=== PATIENT | male | born 1940 | race Caucasian/White ===

== ENCOUNTER 2018-08-30 17:45 | Inpatient (IN) | payer OTHER, BC ==
[2018-08-30 19:02] LABS: PLATELET COUNT 189 10^3/uL (150-400)
[2018-08-30] MEDS ORDERED: BENZONATATE 100 MG CAP PO ONE (22:29)
--- NOTE | 2018-08-30 22:34 | EDPHY ---
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 History was obtained from both the patient as well as his family members. Patient has been in [place] since June and was admitted [facility] the [facility] and diagnosed with an unspecified psychosis. Patient is currently taking Depakote. The son believes he may have bipolar disorder. Patient returned from [place] 2 weeks ago. 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 Patient denies any suicidal ideation, homicidal ideation, or hallucinations. He denies any medical complaints. No history of recent head injury. Son reports patient had an MRI obtained when he was in [place]. No fever, chills, chest pain, shortness of breath, palpitations, vomiting, diarrhea, urinary complaints, headache, lightheadedness. REVIEW OF SYSTEMS: A comprehensive 10 system review of systems was reviewed and is otherwise negative aside from elements mentioned in the history of present illness and medical decision making. PAST MEDICAL HISTORY: Denies past medical history. No family history of psychiatric illness. SOCIAL HISTORY: Nonsmoker, no alcohol, no illicit drug use. VITAL SIGNS Reviewed by me. GENERAL: Well-developed, well-nourished, resting comfortably in no respiratory distress. HEENT: Atraumatic. Eyes: No icterus, no injection. Mouth: moist mucous membranes. No erythema or lesions. Neck: supple with no adenopathy. LUNGS: Clear to auscultation bilaterally, no wheezes, rhonchi or rales. CARDIAC: Regular rate and rhythm, no rubs, murmurs or gallops. ABDOMEN: Soft, nontender, nondistended, bowel sounds normal. BACK: No CVA tenderness. EXTREMITIES: No trauma. No edema. Range of motion is normal throughout. NEURO: Alert and oriented, grossly nonfocal. SKIN: Warm and dry, no rash. Extremely dry skin with multiple areas of cracks on the fingers. PSYCHIATRIC: Normal mentation, no agitation. Poor insight into his decisions. 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,gerd - Social History Smoking Status: Never smoked Constitutional: Initial Vital Signs Temperature (C) 36.8 C 08/30/18 17:49 Heart Rate 97 08/30/18 17:49 Respiratory Rate 18 08/30/18 17:49 Blood Pressure 146/88 H 08/30/18 17:49 O2 Sat (%) 97 08/30/18 17:49 O2 Delivery Mode Room Air Allergies/Adverse Reactions: Beef Containing Products [beef] Allergy (Verified 08/30/18 17:55) Home Medications: Medication Instructions Recorded Aspirin [Aspirin 81mg (*)] 81 mg PO HS 08/31/18 Cholecalciferol Vit D3 [Vitamin D3 1,000 units PO HS 08/31/18 (*)] Divalproex ER [Depakote ER 500 MG 500 mg PO HS 08/31/18 (*)] Memantine HCl [Namenda] 10 mg PO DAILY 08/31/18 Metoprolol Succinate Xr [Toprol Xl 200 mg PO DAILY 08/31/18 100 mg (*)] [place]-3 Fatty Acids [Fish Oil 1000 6 g PO BID 08/31/18 mg (*)] QUEtiapine FUMARATE [Seroquel 100 150 mg PO HS 08/31/18 mg (*)] Valsartan/Hydrochlorothiazide 1 each PO DAILY 08/31/18 [Valsartan-Hctz 320-25 mg Tab] amLODIPine BESYLATE [Norvasc 10 mg 10 mg PO DAILY 08/31/18 (*)] Medical Decision Making ED Course/Re-evaluation: 78-year-old male presenting with family. I had a chance to obtain additional history from the family alone. I believe patient is gravely disable from what I assumed may be bipolar disorder. Family is in agreement. Patient was placed on a 72 hr mental health hold by myself. Labs were obtained. These are largely unremarkable. Patient's Depakote level is 26.4. Urine tox is negative Patient was seen and evaluated by [facility]. Decision was made to admit the patient to [facility]. Accepting physician Dr. Eunice Mosley. Differential Diagnosis: Differential diagnoses for the patient's symptom complex was considered including but not limited to dementia, psychosis, schizoaffective disorder, bipolar disorder, drug or alcohol use, occult infection. Consult/Admit Bed Type: [facility] - Data Points Laboratory Results: Laboratory Results 08/30/18 18:45 08/30/18 18:45 Medications Given: Acetaminophen (Tylenol) 650 mg PO Q4HRS PRN PRN Reason: Pain, Mild Stop: 02/27/19 00:49 Last Admin: 09/04/18 00:20 Dose: 650 mg Al Hydroxide/Mg Hydroxide (Maalox Susp) 30 ml PO Q6HRS PRN PRN Reason: Dyspepsia Stop: 02/27/19 00:49 Last Admin: 09/01/18 03:10 Dose: 30 ml Amlodipine Besylate (Norvasc) 10 mg PO DAILY [facility] Stop: 03/03/19 08:59 Last Admin: 09/04/18 11:10 Dose: Not Given Aspirin (Aspirin) 81 mg PO HS [facility] Stop: 03/03/19 20:59 Last Admin: 09/04/18 20:35 Dose: 81 mg Benzonatate (Tessalon Pearles) 100 mg PO TID PRN PRN Reason: Cough, Mild Stop: 03/02/19 15:19 Last Admin: 09/05/18 16:53 Dose: 100 mg Cholecalciferol (Vitamin D) 1,000 units PO HS [facility] Stop: 03/03/19 20:59 Last Admin: 09/04/18 20:35 Dose: 1,000 units Guaifenesin/Dextromethorphan (Robitussin Dm Oral Liquid) 10 ml PO Q4HRS PRN PRN Reason: Cough, Moderate Stop: 03/03/19 19:07 Last Admin: 09/04/18 20:37 Dose: 10 ml Hydrochlorothiazide (Hydrochlorothiazide) 25 mg PO DAILY [facility] Stop: 03/03/19 08:59 Last Admin: 09/04/18 11:11 Dose: Not Given Lorazepam (Ativan) 0.5 mg PO Q6H PRN PRN Reason: ANXIETY/INSOMNIA Stop: 03/03/19 07:44 Last Admin: 09/04/18 22:59 Dose: 0.5 mg Magnesium Hydroxide (Milk Of Magnesia) 30 ml PO DAILY PRN PRN Reason: Constipation Stop: 02/27/19 00:49 Last Admin: 08/31/18 09:25 Dose: 30 ml Memantine (Namenda) 10 mg PO DAILY [facility] Stop: 03/03/19 08:59 Last Admin: 09/05/18 08:49 Dose: 10 mg Metoprolol Succinate (Toprol Xl) 200 mg PO DAILY [facility] Stop: 03/03/19 08:59 Last Admin: 09/05/18 08:49 Dose: 200 mg Olanzapine (Zyprexa Zydis) 5 mg PO BID PRN PRN Reason: Agitation, Acute Stop: 03/02/19 16:29 Last Admin: 09/04/18 00:20 Dose: 5 mg [id number]-8-[id number] Ethyl Esters (Fish Oil) 6,000 mg PO BID [facility] Stop: 02/27/19 20:59 Last Admin: 09/05/18 08:02 Dose: 6,000 mg Throat Lozenges (Cepacol Lozenge) 1 ea PO Q4H PRN PRN Reason: Sore Throat Stop: 02/28/19 19:12 Last Admin: 09/04/18 21:59 Dose: 1 ea Valsartan (Diovan) 320 mg PO DAILY [facility] Stop: 03/03/19 08:59 Last Admin: 09/04/18 11:16 Dose: Not Given Discontinued Medications Amlodipine Besylate (Norvasc) 10 mg PO DAILY [facility] Stop: 02/27/19 09:14 Last Admin: 09/03/18 08:17 Dose: 10 mg Aspirin (Aspirin) 81 mg PO DAILY [facility] Stop: 02/27/19 09:14 Last Admin: 09/03/18 08:19 Dose: 81 mg Benzonatate (Tessalon Pearles) 100 mg PO EDNOW ONE Stop: 08/30/18 22:30 Last Admin: 08/30/18 22:32 Dose: 100 mg Cholecalciferol (Vitamin D) 1,000 units PO DAILY [facility] Stop: 02/27/19 09:14 Last Admin: 09/03/18 08:19 Dose: 1,000 units Hydrochlorothiazide (Hydrochlorothiazide) 25 mg PO DAILY [facility] Stop: 02/27/19 09:29 Last Admin: 09/03/18 08:19 Dose: 25 mg Influenza Virus Vaccine Quadrival (Flulaval Quad [id number] (6mo+)) 0.5 ml IM .ONCE ONE Stop: 08/31/18 18:12 Last Admin: 08/31/18 19:16 Dose: 0.5 ml Lorazepam (Ativan) 1 - 2 mg PO Q6 PRN PRN Reason: ANXIETY/INSOMNIA Stop: 02/27/19 00:49 Last Admin: 09/03/18 08:19 Dose: 1 mg Lorazepam (Ativan) 0.5 mg PO Q6 PRN PRN Reason: ANXIETY/INSOMNIA Stop: 02/27/19 00:49 Last Admin: 09/04/18 00:19 Dose: 0.5 mg Memantine (Namenda) 10 mg PO DAILY [facility] Stop: 02/27/19 09:14 Last Admin: 09/03/18 08:18 Dose: 10 mg Metoprolol Succinate (Toprol Xl) 200 mg PO DAILY [facility] Stop: 02/27/19 09:14 Last Admin: 09/03/18 08:18 Dose: 200 mg Olanzapine (Zyprexa Zydis) 5 - 10 mg PO Q6 PRN PRN Reason: AGITATION, USUAL MAX 30MG/DAY Stop: 02/27/19 00:49 Last Admin: 09/03/18 15:27 Dose: 5 mg Bprjs-9-[id number] Ethyl Esters (Fish Oil) 1,000 mg PO DAILY [facility] Stop: 02/27/19 09:14 Last Admin: 08/31/18 09:25 Dose: 1,000 mg Hpxng-2-Uxuu Ethyl Esters (Fish Oil) 5,000 mg PO ONCE ONE Stop: 08/31/18 09:46 Last Admin: 08/31/18 11:06 Dose: 5,000 mg Pneumococcal 13-Valent Conj Vacc (Prevnar 13 Syringe) 0.5 ml IM .ONCE ONE Stop: 08/31/18 18:12 Last Admin: 08/31/18 19:14 Dose: 0.5 ml Valsartan (Diovan) 320 mg PO DAILY [facility] Stop: 02/27/19 09:29 Last Admin: 09/03/18 08:17 Dose: 320 mg Departure - Departure Disposition: [facility] IP Clinical Impression: Psychosis Qualifiers: Psychosis type: other Qualified Code(s): F28 - Other psychotic disorder not due to a substance or known physiological condition Condition: Fair
--- NOTE | 2018-08-30 23:47 | PDCONSULT ---
Sheet Metal Mechanic Note: Hospitalist H&P CC: Psychosis HPI: 78 yo M w/ hx of HTN and prostate CA presents with family w/ concerns for psychosis. The patient himself denies complaints, SI/HI, and AVH. He is alert, oriented, has intact memory and fund of knowledge on my evaluation. He does have somewhat pressured speech. He was brought in by his family due to erratic behavior. Apparently he just bought a new car and has offered an ex-girlfriend a new house. The patient is currently taking Depakote. Additionally, ED report states that he has been verbally abusive with his . Son stated that he had an MRI in [place] that did not demonstrate any clear abnormalities. The patient denies medical complaints today. PMHx: HTN, prostate CA PSHx: Cervical spine surgery PFHx: Father had TB and silicosis VS: Temp Pulse Resp BP Pulse Ox 37.0 C 89 16 135/76 H 97 08/30/18 23:16 08/30/18 23:16 08/30/18 23:16 08/30/18 23:16 08/30/18 23:16 PE: GEN: A&Ox3, NAD HEENT: MMM, Nl scalp CV: RRR, no m/r/g RESP: CTAB, no w/r/r ABD: NTND, +BS EXT: No edema, pulses 2+ SKIN: Abrasions overlying DIPs, warm NEURO: CN II-XII intact, NL strength PSYCH: mildly pressured speech, no SI/HI/AVH Labs: Laboratory Results 08/30/18 18:45 08/30/18 18:45 08/30/18 08/30/18 08/30/18 18:50 18:45 18:45 WBC 3.90 10^3/uL 10^3/uL (3.80-9.50) RBC 4.20 10^6/uL L 10^6/uL (4.40-6.38) Hgb 13.3 g/dL L g/dL (13.7-17.5) Hct 40.0 % % (40.0-51.0) MCV 95.2 fL fL (81.5-99.8) MCH 31.7 pg pg (27.9-34.1) MCHC 33.3 g/dL g/dL (32.4-36.7) RDW 13.8 % % (11.5-15.2) Plt Count 189 10^3/uL 10^3/uL (150-400) MPV 10.0 fL fL (8.7-11.7) Neut % (Auto) 61.3 % % (39.3-74.2) Lymph % (Auto) 17.2 % % (15.0-45.0) [place] % (Auto) 20.0 % H % (4.5-13.0) Eos % (Auto) 0.0 % L % (0.6-7.6) Baso % (Auto) 1.0 % % (0.3-1.7) Nucleat RBC Rel Count 0.0 % % (0.0-0.2) Absolute Neuts (auto) 2.39 10^3/uL 10^3/uL (1.70-6.50) Absolute Lymphs (auto) 0.67 10^3/uL L 10^3/uL (1.00-3.00) Absolute Monos (auto) 0.78 10^3/uL 10^3/uL (0.30-0.80) Absolute Eos (auto) 0.00 10^3/uL L 10^3/uL (0.03-0.40) Absolute Basos (auto) 0.04 10^3/uL 10^3/uL (0.02-0.10) Absolute Nucleated RBC 0.00 10^3/uL 10^3/uL (0-0.01) Immature Gran % 0.5 % % (0.0-1.1) Immature Gran # 0.02 10^3/uL 10^3/uL (0.00-0.10) Sodium 137 mEq/L mEq/L (135-145) Potassium 3.6 mEq/L mEq/L (3.5-5.2) Chloride 100 mEq/L mEq/L (97-110) Carbon Dioxide 27 mEq/l mEq/l (22-31) Anion Gap 10 mEq/L mEq/L (6-14) BUN 21 mg/dL mg/dL (7-23) Creatinine 1.2 mg/dL mg/dL (0.7-1.3) Estimated GFR 59 Glucose 107 mg/dL H mg/dL (70-100) Calcium 8.8 mg/dL mg/dL (8.5-10.4) Urine Color YELLOW Urine Appearance CLEAR Urine pH 6.0 (5.0-7.5) Ur Specific [place] 1.017 (1.002-1.030) Urine Protein NEGATIVE (NEGATIVE) Urine Ketones NEGATIVE (NEGATIVE) Urine Blood NEGATIVE (NEGATIVE) Urine Nitrate NEGATIVE (NEGATIVE) Urine Bilirubin NEGATIVE (NEGATIVE) Urine Urobilinogen NEGATIVE EU EU (0.2-1.0) Ur Leukocyte Esterase NEGATIVE (NEGATIVE) Urine RBC NONE SEEN /hpf /hpf (0-3) Urine WBC 1-3 /hpf /hpf (0-3) Ur Epithelial Cells TRACE /lpf /lpf (NONE-1+) Urine Glucose NEGATIVE (NEGATIVE) Urine Opiates Screen NEGATIVE (NEGATIVE) Urine Barbiturates NEGATIVE (NEGATIVE) Valproic Acid 26.4 mcg/mL L mcg/mL (50.0-150.0) Ur Phencyclidine Scrn NEGATIVE (NEGATIVE) Ur Amphetamine Screen NEGATIVE (NEGATIVE) U Benzodiazepines Scrn NEGATIVE (NEGATIVE) Urine Cocaine Screen NEGATIVE (NEGATIVE) U Marijuana (THC) Screen NEGATIVE (NEGATIVE) Ethyl Alcohol < 10 mg/dL mg/dL (0-10) A/P: 78 yo M w/ HTN and prostate CA presents with decompensated psychiatric disease. 1. Psychiatric disease - Possibly decompensated roland noting impulsive behavior. Noting age, frontotemporal dementia can be a consideration but son reports normal MRI in [place]. It would be useful to track down this report. - M1 hold - Inpatient behavioral health for additional evaluation 2. HTN - On valsartan, HCTZ, and metoprolol as an outpatient. - Continue home medications Diet - Regular Code - Full Ppx - LMWH Dispo - Inpatient behavioral Health
--- NOTE | 2018-08-31 00:17 | ASMTTLCEVL ---
T[facility] Evaluation - Basic Information Evaluation Start Date and 08/30/2018 07:30 PM Time Hospital Status Answers: M1 Hold 72-hr M1 Hold Start Date 08/30/2018 06:30 PM and Time Patient statement Notes: "You're pretty. I'd like to interview you. We could hang out any day except Monday because I have to go to [employer]. You're is a melissa man. Does he know that? I'd like to get my head on straight like others but not like others who are jerks. I gave myself a 100%, I deserve an A or 150%. I gave my honest answers. I would never say anything to upset you (referencing BDI/BSS). My thinks something is wrong with me. I'm not unhappy but I have down days. I want to live. live. live. I want peace and tranquility Why feel sad when I can be happy. Buy an Juan Antonio! I haven't had sex in 14 years. I love sex. It is important. I hope you don't ever go 14 years without sex. Maybe she might have a problem. Bed isn't to lay in. I'm not going to lay in the middle of the road. Cyclists think they own the road. I saw someone on a unicycle, he wasn't using his hands. I have a tortilla shell I fill it with beans, tomatoes, and cheese. My dog loves it. Every couple of bites, he gets a bite, he is well fed better than starved. Have you ever seen a starving dog. It is not like a starving child." Narrative Notes: The patient is a 78 y/o male, , retired, with a hx of manic and depressive symptoms. He is living in an home in [place], [place]. The patient arrived via EMS on an M1 hold placed by MARIA FERNANDA SIMEON after patient's manic symptoms escalated resulting in multiple police interventions and the following behavior "wandering into traffic on highway attempting to flag cars, not sleeping/not tired, spending sprees, hyper sexual, inviting strangers into the home, andselling/giving away items. The patient presents as hyper verbal, tangential, and pressured in speech. He lacks insight into dx and denies mh hx. The patient was read their rights @ 23:00. At the time of initial utox testing in the ed @ 18:50 the patients utox was negative. Per M1 hold, "Diagnosed with psychosis 3 mos ago. Not sleeping, verbally. Abusive to family, frequent police interactions, indiscriminate spending of money, wandering in traffic. Suspect bipolar with roland." The patient stated, "You're pretty. I'd like to interview you. We could hang out any day except Monday because I have to go to [employer]. You're is a melissa man. Does he know that? I'd like to get my head on straight like others but not like others who are jerks. I gave myself a 100%, I deserve an A or 150%. I gave my honest answers. I would never say anything to upset you (referencing BDI/BSS). My thinks something is wrong with me. I'm not unhappy but I have down days. I want to live. live. live. I want peace and tranquility Why feel sad when I can be happy. Buy an Juan Antonio! I haven't had sex in 14 years. I love sex. It is important. I hope you don't ever go 14 years without sex. Maybe she might have a problem. Bed isn't to lay in. I'm not going to lay in the middle of the road. Cyclists think they own the road. I saw someone on a unicycle, he wasn't using his hands. I have a tortilla shell I fill it with beans, tomatoes, and cheese. My dog loves it. Every couple of bites, he gets a bite, he is well fed better than starved. Have you ever seen a starving dog. It is not like a starving child." Diagnosis History Notes: The patient denied any previous d/o and dx hx. The patient's family members suspect that the patient has bipolar d/o which went undiagnosed/untreated. The family members recalled several past possible episodes including most recently, three years ago, in which the patient presented similarly for three months and his symptoms reportedly resolved after removing statins from his medication regimen. Prior suicide attempts Notes: The patient denied any prior suicide attempts. Prior hospitalizations Notes: The patient reported the following previous hospitalization for mh. The patient was hospitalized in July of 2018 in [place] where he lives with his for part of the year. The patient had repeat visits to the ED resulting in psychiatric admission for similar symptoms and bhx to patient's current presentation. Treatment Responses Notes: There is not sufficient information to determine the patients treatment response. History of violence Notes: The patient denied any homicidal ideation or previous hx of violence. Therapist: None Psychiatrist: None Medications (name, dosage, route, freq uency) Notes: The patient is on multiple medications; information unknown. Allergies/Reaction Notes: no known allergies Sleep Notes: The patient has not been sleeping and is not tired; he reported "more energy." The patient's family members report that he receives 1-2 hours of sleep every few days; duration unknown. Appetite Notes: The patient stated, "That was a great sandwich!" Medical/Surgical history Notes: The patient denied any significant medical/surgical hx. Substance use history (frequency, intensity, his tory, duration) Notes: There was no substance abuse reported. Family composition Notes: The patient lives with his in part of the year in [place] and the other in [place]. Their only adult son lives in [place] with his family. Need for family Answers: Yes participation in patient's care Family psychiatric/substance abuse history Notes: The patient denied any family psychiatric/substance abuse hx. Developmental history Notes: The patient denied any developmental issues or learning disabilities. The patient denied ADD or ADHD. The patient denied any TBIs, concussions, or LOC.The patient denied any physical abuse, emotional abuse, or sexual abuse. The patient endorsed having achieved normal developmental milestones. Abuse concerns Answers: None Marital status/children Notes: The patient is with one adult child. Living situation Notes: The patient lives with his in part of the year in [place] and the other in [place]. Their only adult son lives in [place] with his family. Sexual history/orientation Notes: The patient reported he is heterosexual and he has not "had sex in 14 years." Peer support/family strengths Notes: The patient endorsed having a supportive family/peer group. Education level/history Notes: The patient reported having attended high school and some college, bachelors degree, and masters degree. Work history Notes: The patient is retired. He worked for the [employer] where he met his . Notes: no known affiliation Legal Notes: The patient denied any legal issues. Yazdanism/Spiritual Notes: The patient reported none that would interfere with treatment. The patient stated, "I believe in God." Leisure Notes: The patient reported enjoying "golfing." Collateral Notes: The collateral data was obtained from current and previous [facility] ed records/staff, 27-65 M1, and family members. Patient's strengths Answers: Funny/Using Humor (Please select at least TWO strengths): Good Parent Motivated for Treatment Supportive Family Willingness TLC Evaluation - Mental Status Exam Appearance: Answers: Appropriate Clean Neat Eye Contact: Answers: Appropriate for Culture Good/Direct Mood: Answers: Elevated Affect: Answers: Appropriate Cheerful Congruent w/ Mood Happy Hyperactive Behavior: Answers: Appropriate Cooperative Erratic Talkative Speech: Answers: Relevant Logical Clear Coherent Excessive Hypersexual Hyperverbal Loose Associations Pressured Rambling Rapid Thought Process: Answers: Organized Oriented Alert Loose Associations Racing Thoughts Tangential Insight: Answers: Poor Judgement: Answers: Poor Manic Signs/Symptoms Answers: Distractibility Hypersexuality Impulsivity Irritability Pressured Speech Racing Thoughts Spending Sprees Depression Answers: Crying Spells Signs/Symptoms: Hallucinations: Answers: None Pt reported to have Answers: No suicidal/self-injuring ideation/behavior? Pt reported to be making Answers: No suicidal/self-injuring threats? Pt reported to have Answers: No aggression/assault ideation/behavior? Pt reported to be making Answers: No aggression/assault threats? Pt exhibits inability to Answers: Yes care for self/grave disability? Ideation/behavior is Answers: No chronic? Patient has a specific Answers: No plan? Pt has access to means to Answers: No execute the plan? Ideation involves Answers: No serious/lethal intent? Ideation has Answers: No delusional/hallucinatory content? History of Answers: No suicidal/self-injuring ideation, behavior, or threats? History of Answers: No aggressive/assaultive ideation, behavior, or threats? History of serious Answers: No physical harm to self/others while in treatment setting? TLC Evaluation - Suicide/Homicide Risk Suicide Risk Factors: Answers: < 20 or > 40 Years of Age Bipolar Disorder Impulsivity Homicide/violence risk Answers: None factors: Current Suicidal Answers: No Ideation? Current Suicidal Ideation Answers: No in the Past 48 Hours? Current Suicidal Ideation Answers: No in the Past Month? Current Suicidal Answers: No Ideation, Worst Ever? Suicide Internal Answers: Gianna with Stress Protective Factors: Suicide External Answers: Positive Therapeutic Protective Factors: Relationships Responsibility to Children Social Support Ranking of patient's Answers: Moderate suicidal risk: Ranking of patient's Answers: Low homicidal risk: TLC Evaluation - Wrap-up BDI Total Score: 0 BDI Question #2 Score: 0 BDI Question #9 Score: 0 BSS Total Score: 0 AXIS I Diagnosis (include DSM-V and ICD-10 codes), must also be entered in [employer], which is the source of truth. Notes: Unspecified Bipolar and Related Disorder 296.80 (F31.9) Evaluation End Date and 08/31/2018 12:15 AM Time (HH:MM): Date Signed: 08/31/2018 12:16 AM Electronically Signed By:Radha Tobias
--- NOTE | 2018-08-31 00:18 | ASMTTCLDSP ---
TLC Discharge Disposition Disposition: Answers: Admit Discharge Concerns/Recommendations: Notes: In consultation with [facility] ED physician, Marcy Blackman MD and [facility] on-call psychiatrist, Eunice Mosley MD, both concurred that pt appears to meet 27-65 criteria requiring psychiatric hospitalization as the patient appears to be an imminent risk of harm to gravely disabled due to a mental illness condition. The patient was read the Patient Rights and Responsibilities Statement (placed on chart). The patient was given the 3N prohibited belongings list while in the ED. For inpatient Eunice Mosley MD admission, the following psychiatrist agreed to accept patient for admission to Behavioral [facility] ([facility]): Type of Hold: Answers: M1/72-hour Hold Hold initiated by: Answers: ED Physician Date Signed: 08/31/2018 12:17 AM Electronically Signed By:Radha Tobias
[2018-08-31] MEDS ORDERED: MAG HYDROX/AL HYDROX/SIMETH 30 ML UDCUP PO PRN (00:50)
[2018-08-31] MEDS ORDERED: MAGNESIUM HYDROXIDE 30 ML UDCUP PO PRN (00:50)
--- NOTE | 2018-08-31 07:28 | BAPA ---
[f rep st] ADMISSION PSYCHIATRIC ASSESSMENT DATE OF SERVICE: 08/31/2018 CHIEF COMPLAINT: "My wanted me to come here. I'm glad I did, this is where I need to be, but I can't stay too long." HISTORY OF PRESENT ILLNESS: From the ED note dated 08/30/2018, the patient presented to the emergency department with his family. The patient's primary request was wanting to be able to drive again. History was obtained by both patient as well as family members in the ED. The patient has been in [place] since June and was admitted to a hospital there and diagnosed with unspecified psychosis. The patient is currently taking Depakote. The patient returned from [place] 2 weeks ago, and according to son, has had several run-ins with the police. 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 Patient's driver material handler's license was taken away due to concerns regarding his cognitive abilities while he was in [place]. The patient' s son reported in the emergency department that he believes the patient may have bipolar disorder. From the TLC evaluation dated 08/30/2018, the patient was placed on a 72-hour M1 hold with start date and time of 08/30/2018 at 6:30 p.m. The patient reported to the [facility] jack machine operator, "You're pretty, I'd like to interview you, we could hang out any day except Monday because I have to go to [facility]. Your is a melissa man, does he know that? I'd like to get my head on straight like others but not like others who are jerks. I gave myself 100%, I deserve an A or 150%. I gave my honest answers. I would never say anything too upset to you (patient referring to BDI/BSS). My thinks there's something wrong with me. I'm not happy, but I have down days. I want to live, live, live. I want peace and tranquility. Why feel when I can be happy, buy an [employer]. I haven 't had sex for 14 years. I love sex, it is important. I hope you don't ever go 14 years without sex. Maybe she might have a problem. Bed isn't to lay in. I'm not going to lay in the middle of the road, cyclists think they own the road. I saw someone on a unicycle, he wasn't using his hands. I have a tortilla shell, I fill it with beans, tomatoes, and cheese. My dog loves it. Every couple of bites he gets a bite. He is well fed better than starved. Have you ever seen a starving dog, it is not like a starving child." Patient was placed on an M1 hold by [facility] due to police reports that the patient had been wandering into traffic on highway, attempting to flag cars, not sleeping, decreased need for sleep, spending sprees, hypersexual, inviting strangers into the home, and selling and giving way items. During the TLC evaluation patient presented hyperverbal, tangential with pressured speech. M1 hold states patient diagnosed with psychosis 3 months ago, not sleeping, verbally abusive to family, frequent police interactions, indiscriminate spending of money, wandering into traffic, suspect bipolar with roland. This NEWS CAMERA OPERATOR asked patient why he is here at the hospital and patient states that question will be better asked to his and begins telling this NEWS CAMERA OPERATOR about some recent yard work and landscaping he was doing. Then patient begins to tell this NEWS CAMERA OPERATOR how people should be treated. The patient is a poor historian, is unable to answer interview questions, is tangential. The patient requests this NEWS CAMERA OPERATOR to call his later this morning. [facility] staff at [facility] Tamayo report patient has not slept since arriving to the unit, has been awake, hyperverbal, inappropriate to female staff, hypersexual. Will continue to gather history of present illness throughout the course of the patient's hospitalization and this NEWS CAMERA OPERATOR will attempt to reach out to patient's and son today to gather more collateral. The patient has given consent for this NEWS CAMERA OPERATOR to contact both his and son. PAST PSYCHIATRIC HISTORY: The patient denies any previous psychiatric diagnosis history. The patient's family members reported during the TLC evaluation they suspect the patient has bipolar disorder, which has been undiagnosed and untreated. Family members recalled several past possible episodes including most recently 3 years ago in which the patient presented similarly with 3 months and his symptoms reportedly resolved after removing statins from his medication regimen. The patient was admitted to a hospital in [place] and was diagnosed with unspecified psychosis. ED report stated that patient is currently taking Depakote, dose unknown. We will gather this information from patient's and family and also from past records from patient's hospitalization while in [place]. The patient denies history of prior suicide attempts. The patient has 1 prior hospitalization for psychiatric treatment. The patient was hospitalized in July of 2018, in [place] where he lives with his for part of the year. The patient has had repeat visits to the emergency department resulting in psychiatric admission for similar symptoms to patient's current presentation. The patient reportedly not sleeping. Reports not being tired. Patient reported "more energy." Family members reported during the TLC evaluation patient receives 1- 2 hours of sleep every few days. The duration of this is unknown. ALLERGIES: Beef containing products. CURRENT MEDICATIONS: 1. Tylenol 650 mg p.o. q.4 hours p.r.n. 2. Ativan 1-2 mg p.o. q.6 hours p.r.n. 3. Maalox syrup 30 mL p.o. q.6 hours p.r.n. 4. Milk of Magnesia 30 mL p.o. daily p.r.n. 5. Zyprexa Zydis 5-10 mg p.o. q.6 hours p.r.n. PAST MEDICAL HISTORY: Patient denies any significant medical or surgical history. Will continue to gather this information throughout the course of the patient's hospitalization. Will also gather this information from patient's family as patient is a poor historian. SOCIAL HISTORY: The patient currently lives with his part of the year in [place] and the other in [place]. The patient has one son who lives in [place] with his family. The patient reports sexual orientation as heterosexual. Patient reports no history of learning delays or difficulties. Reports no history of TBIs, concussions, or loss of consciousness. The patient denies any history of sexual, emotional, or physical abuse. The patient reports meeting all his developmental milestones. The patient reported having attended high school and some college. Received a bachelor's degree and master' s degree. The patient is retired and the patient worked for the [employer] where he met his . The patient reports no history of legal issues. The patient reports no scientologist or spiritual practice that would interfere with treatment. SUBSTANCE USE HISTORY: Currently no substance abuse reported. Will continue to gather patient's substance use history throughout the course of the patient' s hospitalization. FAMILY PSYCHIATRIC HISTORY: The patient denies any family psychiatric history or substance abuse history. Will continue to gather family psychiatric history throughout the course of the patient's hospitalization. ADMISSION LABS AND STUDIES: 1. CBC within normal limits except red blood cells were low at 4.20, hemoglobin was low at 13.3, monocytes elevated at 20.0, eosinophils low at 0.0, absolute lymphocytes low at 0.67, absolute monocytes low at 0.00. 2. BMP within normal limits except glucose was elevated at 107. 3. Hemoglobin A1c is pending. 4. Liver function within normal limits except AST was elevated at 73. 5. Lipid panel within normal limits except LDL cholesterol calculated is elevated at 111, non-HDL cholesterol elevated at 135, and HDL cholesterol low at 35. 6. TSH within normal limits at 2.270. 7. Urines within normal limits. 8. Toxicology screen negative for all the substances that were screened and negative for ethyl alcohol. 9. Valproic acid 26.4. Current dose of Depakote unknown. MENTAL STATUS EXAM: The patient is a well-nourished male, looking stated chronological age. Attire is appropriate. Dress is casual. Grooming status is appropriate. Ambulation is independent. Gait is normal and coordinated. Posture is normal and relaxed. Eye contact is appropriate and adequate. Motor activity is appropriate with purposeful, organized, coordinated movements with no involuntary movements noted. Attitude is cooperative. Patient appears distractible and does not relate well to this interviewer. Language production is spontaneous. Rate is pressured. Latency of response is shortened. Articulation is clear. Patient reports mood as "okay" with congruent affect. Patient's thought process is nonlinear and illogical with tangential thought. The patient does not report suicidal or homicidal thoughts, ideas, or plans. The patient denies auditory or visual hallucinations. Patient denies delusions. The patient does not appear to be attending to internal stimuli. The patient is oriented to person, place, and time. The patient's attention and concentration are fair. Patient's insight and judgment are poor. DIAGNOSIS: Based on the patient's history and presentation, patient's current diagnoses are: 1. Unspecified bipolar and related disorder. 2. Rule out psychosis. 3. Rule out neurocognitive disorder. FORMULATION: The patient is a 78-year-old male, , currently living with his in [place], [place], who presents to the hospital involuntarily due to being gravely disabled and is currently on an M1 hold. The patient requires continued inpatient care because of current mood instability. The patient presents with problems of mood instability including decreased need for sleep, disorganized thought process tangential that have steadily been increasing over the past several months. Patient's life has been affected by these problems including engaging in behaviors that are the potential to cause harm including walking into traffic. The onset/exacerbation of symptoms for this hospitalization have been occurring since the beginning of this year. The trigger for symptoms is unknown at this time. The patient has a past psychiatric history of unspecified psychosis, was given this diagnosis while hospitalized July of 2018 in [place]. The patient has been prescribed Depakote dose unknown at this time and indication for prescribing Depakote is unknown at this time. The patient's response to this treatment is unknown at this time. The patient is a high safety risk due to current mood instability, disorganized thought, tangential causing inability for patient to attend to ADLs and communicate his basic needs. Protective factors while hospitalized include ongoing safety checks, active involvement in treatment and support from our treatment team. The patient could benefit from inpatient hospitalization for safety, crisis stabilization, and medication evaluation. PLAN: 1. Medications: After reviewing options, risks, and benefits with the patient , patient agrees to continue current medications listed above. Will contact the patient's at patient's request to gather additional information regarding current medications. No other medication changes at this time as more time is needed to determine ongoing tolerability and efficacy. Plan is to continue to observe patient for response and side effects from medications, and ongoing monitoring and evaluation. 2. Review with patient informed consent and recommendations for psychotropic medication treatment listed below 3. Labs: no additional labs at this time 4. Therapy: continue milieu and group therapy 5. Further investigation including gathering information from patients relatives and review of past case records to inform treatment plan. 6. Safety/Wellness plan and follow-up outpatient appointments to be established prior to discharge. Next steps are for patient to meet with personal care aide to plan a safe discharge plan and establish outpatient services for ongoing treatment. 7. Confer with inpatient treatment team regarding treatment plan. 8. Address psychosocial stressors by meeting with career coach to establish discharge plan including referrals for outpatient services. 9. Legal status: M1 10. Consider discharge next week if patient is in stable condition, safe, and has a safe discharge plan. ESTIMATED LENGTH OF STAY: 7-10 days PSYCHOTROPIC MEDICATION TREATMENT INFORMED CONSENT and RECOMMENDATIONS: Review nature of condition, diagnosis, and prognosis. Review nature and purpose of psychotropic medication treatment. Review type of psychotropic medications being ordered. Review risk and benefits of psychotropic medication treatment. Review probable length of time will need to take medications. Review risk and benefits of not undergoing psychotropic medication treatment. Review alternative treatments to psychotropic medications. Review psychotropic medications contraindications, drug-drug interactions, side effects, and importance of reporting any side effects to a psychiatric provider or nurse during inpatient hospitalization, and upon discharge to patients psychiatric outpatient provider, primary care provider, or other health pet caregiver. Review importance of asking a nurse, psychiatric provider, or primary care provider any questions or problems concerning the psychotropic medications. Verify patient understands the information that has been provided, and understands, accepts, and agrees to psychotropic medications. Review patients safety plan and importance of patient to communicate to staff while hospitalized if patient is ever a danger to self/others, or unable to care for self, and upon discharge, the importance for patient to contact [facility] or [facility], or go to the nearest emergency room, if patient is ever a danger to self/others, or unable to care for self. Recommend that upon discharge patient establish medication management treatment with a psychiatric provider, establishes routine therapy appointments, and follow-up with primary care provider. Verify patient understands and agrees to these recommendations. /[id number]/MODL MTDD
--- NOTE | 2018-08-31 07:33 | ASMTBHMTP ---
Master Treatment Plan Master Treatment Plan Answers: Mood Instability without for: Psychosis Date: 08/31/2018 Diagnosis on Admission: Unspecified Bipolar and Related Disorder 296.80 (F31.9) Expected length of stay: 3-5 Reason for admission: Notes: The patient is a 78 y/o male, , retired, with a hx of manic and depressive symptoms. He is living in an home in [place], [place]. The patient arrived via EMS on an M1 hold placed by Alexandru SIMEON after patient's manic symptoms escalated resulting in multiple police interventions and the following behavior "wandering into traffic on highway attempting to flag cars, not sleeping/not tired, spending sprees, hyper sexual, inviting strangers into the home, andselling/giving away items. The patient presents as hyper verbal, tangential, and pressured in speech. Patient's stated presenting problems: Notes: "My thought I'm a little too happy. What's wrong with being happy?". Patient's goals for treatment: Notes: "To get better". Patient's strengths: Notes: "I'm good at anything I try. I can read". Identify supports outside of hospital: Notes: Discharge criteria: Notes: Ct. will demonstrate more stable mood by discharge. Initial disposition plan/considerations: Notes: Ct. will participate in unit activities, maintain good hygiene. Master Treatment Plan Required Signatures Psychiatrist signature: Answers: Psychiatrist: RN on-shift signature: Answers: RN: Patient signature: Answers: Patient: Date Signed: 08/31/2018 07:32 AM Electronically Signed By:Bhargavi Arauz
--- NOTE | 2018-08-31 07:41 | ASMTCMCOM ---
CM Note CM Note Notes: CC met with ct. to develop MTP. Ct. presented with pressured speech. He was tangental and associative. Ct. reported that he was admitted because his thought that he was "too happy". Ct. was wearing a mouth mask reporting that he has a cold. He has cuts on several of his fingers. 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 He signed a MAGALYS for his and CC will try reaching out to her to get a clearer history of ct.'s MH issues and services. Date Signed: 08/31/2018 07:39 AM Electronically Signed By:Bhargavi Arauz
[2018-08-31] MEDS ORDERED: OMEGA-3 FATTY ACIDS 1,000 MG CAP PO SCH (09:15)
[2018-08-31] MEDS ORDERED: VALSARTAN/HCTZ 80-12.5MG TAB PO SCH (09:15)
[2018-08-31] MEDS: VALSARTAN 160 MG TAB PO SCH (09:23)
[2018-08-31] MEDS: HYDROCHLOROTHIAZIDE 25 MG TAB PO SCH (09:24)
[2018-08-31] MEDS: amLODIPine BESYLATE 5 MG TAB PO SCH (09:24)
[2018-08-31] MEDS: CHOLECALCIFEROL VIT D3 1,000 UNITS TAB PO SCH (09:24)
[2018-08-31] MEDS: METOPROLOL SUCCINATE XR 100 MG TAB PO SCH (09:24)
[2018-08-31] MEDS: MEMANTINE HCL 5 MG TAB PO SCH (09:25)
[2018-08-31] MEDS: ASPIRIN 81 MG CHEWABLE TAB PO SCH (09:26)
[2018-08-31] MEDS ORDERED: OMEGA-3 FATTY ACIDS 1,000 MG CAP PO ONE (09:45)
--- NOTE | 2018-08-31 14:49 | ASMTCMCOM ---
CM Note CM Note Notes: CC met with WOF and SOC who wanted to do how he is doing and give some information. Per son and ct. manic episode started in Jun. He has been admitted to a psych. hospital in [place] for 7 days but apparently left the unit still presenting with manic symptoms. and son reported that at baseline ct. is usually quite and withdrawn. Son and reported that in recent days ct. was irritable and agitated, impulsive with poor judgment and lack of sleep. Discussed options for follow up care with family. They both appear to be very supportive of ct. Date Signed: 08/31/2018 02:48 PM Electronically Signed By:Bhargavi Arauz
[2018-08-31] MEDS ORDERED: PNEUMOC 13-VAL CONJ-DIP CRM/PF 0.5 ML SYR (PREVNAR 13) IM ONE (18:11)
[2018-08-31] MEDS: OMEGA-3 FATTY ACIDS 1,000 MG CAP PO SCH (21:27)
[2018-09-01] MEDS: OMEGA-3 FATTY ACIDS 1,000 MG CAP PO SCH ×3 (07:45→20:48)
[2018-09-01] MEDS: LORazepam 1 MG TAB PO PRN (07:45)
[2018-09-01] MEDS: VALSARTAN 160 MG TAB PO SCH (07:46)
[2018-09-01] MEDS: CHOLECALCIFEROL VIT D3 1,000 UNITS TAB PO SCH (07:46)
[2018-09-01] MEDS: OLANZapine DISINTEGR 5 MG TAB PO PRN (07:47)
[2018-09-01] MEDS: HYDROCHLOROTHIAZIDE 25 MG TAB PO SCH (07:47)
[2018-09-01] MEDS: ASPIRIN 81 MG CHEWABLE TAB PO SCH (07:47)
[2018-09-01] MEDS: amLODIPine BESYLATE 5 MG TAB PO SCH (07:48)
[2018-09-01] MEDS: MEMANTINE HCL 5 MG TAB PO SCH (07:48)
[2018-09-01] MEDS: METOPROLOL SUCCINATE XR 100 MG TAB PO SCH (07:48)
--- NOTE | 2018-09-01 08:13 | ASMTCMCOM ---
CM Note CM Note Notes: Ct. slept for about 45 minutes in the last [address] present as extremely manic. He is refusing re-directions and has been saying that he owns the building. He is loud and hyper- sexual. He has been banging on the door of [facility] [address] in an effort to communicate with a female ct. there. They have been kissing through the door. Date Signed: 09/01/2018 08:12 AM Electronically Signed By:Bhargavi Arauz
--- NOTE | 2018-09-01 11:36 | PDMN ---
Medical Necessity Medical necessity: Pt meets IP criteria per MORTGAGE LOAN PROCESSING CLERK & [id number]-[id number]; est los >2 mn for eval/tx of unspecified bipolar & related disorder; r/o psychosis; pt on M1 hold due to being gravely disabled; admit for further monitoring, safety, crisis stabilization & med management; per H&P & order 08/31/18
--- NOTE | 2018-09-01 15:12 | HOSPPROG ---
Hospitalist Progress Note Assessment/Plan: Was asked to evaluate the pts bilateral hand cuts. He does not provide much history #bilateral cuts -several cuts involving bilateral hands and fingers at various stages of healing. Do not appear actively infected. Etiology is unclear -Wound care should evaluate them. I have placed an order #Actinic Keratosis involving bilateral hands -His is asking for him to restart Imiquimod cream. I think that we can wait until the pt is discharged or at least more alert and psychiatrically stable prior to restarting. #HTN: cont home meds #hx of Prostate Cancer #Psychosis: -mgmt per primary Subjective: sleeping. cooperative to exam. does not provide history Objective: Vital Signs Temp Pulse Resp BP Pulse Ox 36.4 C 95 16 127/71 H 96 09/01/18 06:00 09/01/18 07:48 09/01/18 06:00 09/01/18 07:48 09/01/18 06:00 - Physical Exam Constitutional: no apparent distress Eyes: EOMI Ears, Nose, Mouth, Throat: moist mucous membranes Cardiovascular: edema Respiratory: no respiratory distress, No respiratory distress Skin: warm, other (multiple cuts at various depths and stages of healing) Lymph, Heme, Immunologic: No petechiae ICD10 Worksheet Patient Problems: Problems Problem Status Onset Hypertension Acute
--- NOTE | 2018-09-01 16:46 | SOAPPROG ---
SOAP Progress Note Assessment/Plan: Assessment: This is a 78-year-old male presents with his family with a primary requests that he wants to be able to drive again. History was obtained from both the patient as well as his family members. Patient has been in [place] since June and was admitted to the [facility] and diagnosed with an unspecified psychosis. Patient is currently taking Depakote. The son believes he may have bipolar disorder. Patient returned from [place] 2 weeks ago. 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 WEEKEND PLAN: 09/01/18 16:33 1. reviewed current records including initial psych assessment, TLC evaluation, hospitalist consultation and initial ED report. According to records , family reports "several episodes" in the past where patient has had some sxs consistent with rloand, but it's not clear how often patient had sxs, how long they lasted, and what other factors might have influenced patient's presentation during these times. Patient and family acknowledge no prior psych diagnoses and no psych hospitalizations before July,. It's possible patient had undiagnosed bipolar disorder for most of his life, but highly unlikely to have Bipolar I and not be diagnosed before age 78. Records are not clear when patient was started on Namenda and for what reason. Hospitalist speculated patient's behavior might be caused by frontotemporal dementia, which would explain why he was prescribed Namenda. However, there were reportedly no signs of dementia-related brain changes on recent MRI patient had in [place]. The fact that patient had MRI in [place] indicates there was some concern about dementia or other neurocognitive disorder as explanation for recent unusual behavior. Given the patient has no prior h/o bipolar diagnosis or treatment, and no prior hospitalization for psychiatric issues, neurocognitive disorder is the most likely diagnosis and not bipolar disorder. Therefore, would not recommend prescribing mood stabilizers at this time. They carry significant risks, including risk of CVA and even for patient's who take antipsychotic meds and have dementia. Recommend monitoring patient's condition and requesting records from hospital in [place] where patient was recently treated. 2. Patient slept 45 min last night, but slept > 6 hrs after breakfast for most of the AM and afternoon. 3. Patient presents as confused, disorganized, agitated, uncooperative, delusional. 4. [facility] expires tomorrow. Subjective: Patient is asleep in his bed when MD went to talk to him. Staff report patient only slept 45 minutes last night. He was agitated, uncooperative and confused early this AM. He was incontinent of feces this AM in day area. He was also convinced that female patient was "my " and he tried to kiss her. Patient also believes he "owns this building" and can "fire" all the staff. Patient went to sleep right after breakfast and slept most of the AM and afternoon. Objective: Vital Signs Temp Pulse Resp BP Pulse Ox 36.4 C 95 16 127/71 H 96 09/01/18 06:00 09/01/18 07:48 09/01/18 06:00 09/01/18 07:48 09/01/18 06:00 MSE: Affect: Labile, angry, elevated Mood: Excitable TP: Disorganized, illogical TC: Denies any SI/HI, patient has grandiose delusions Perception: Denies any AH/VH Insight/Judgment: Impaired - Time Spent With Patient Time Spent With Patient: 5" - Pending Discharge Pending Discharge Within 24 Hours: No Pending Discharge Within 48 Hours: No ICD10 Worksheet Patient Problems: Problems Problem Status Onset Hypertension Acute
[2018-09-02] MEDS: OMEGA-3 FATTY ACIDS 1,000 MG CAP PO SCH ×2 (08:53→20:41)
[2018-09-02] MEDS: LORazepam 1 MG TAB PO PRN (08:53)
[2018-09-02] MEDS: OLANZapine DISINTEGR 5 MG TAB PO PRN ×2 (08:53→21:22)
[2018-09-02] MEDS: ASPIRIN 81 MG CHEWABLE TAB PO SCH (08:53)
[2018-09-02] MEDS: CHOLECALCIFEROL VIT D3 1,000 UNITS TAB PO SCH (08:53)
[2018-09-02] MEDS: MEMANTINE HCL 5 MG TAB PO SCH (08:55)
[2018-09-02] MEDS: amLODIPine BESYLATE 5 MG TAB PO SCH (09:17)
[2018-09-02] MEDS: HYDROCHLOROTHIAZIDE 25 MG TAB PO SCH (09:27)
[2018-09-02] MEDS: METOPROLOL SUCCINATE XR 100 MG TAB PO SCH (09:29)
[2018-09-02] MEDS: VALSARTAN 160 MG TAB PO SCH (09:29)
--- NOTE | 2018-09-02 16:18 | SOAPPROG ---
SOAP Progress Note Assessment/Plan: Assessment: This is a 78-year-old male presents with his family with a primary requests that he wants to be able to drive again. History was obtained from both the patient as well as his family members. Patient has been in [place] since June and was admitted to the [facility] and diagnosed with an unspecified psychosis. Patient is currently taking Depakote. The son believes he may have bipolar disorder. Patient returned from [place] 2 weeks ago. 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 WEEKEND PLAN: 09/01/18 16:33 1. reviewed current records including initial psych assessment, TLC evaluation, hospitalist consultation and initial ED report. According to records , family reports "several episodes" in the past where patient has had some sxs consistent with roland, but it's not clear how often patient had sxs, how long they lasted, and what other factors might have influenced patient's presentation during these times. Patient and family acknowledge no prior psych diagnoses and no psych hospitalizations before July,. It's possible patient had undiagnosed bipolar disorder for most of his life, but highly unlikely to have Bipolar I and not be diagnosed before age 78. Records are not clear when patient was started on Namenda and for what reason. Hospitalist speculated patient's behavior might be caused by frontotemporal dementia, which would explain why he was prescribed Namenda. However, there were reportedly no signs of dementia-related brain changes on recent MRI patient had in [place]. The fact that patient had MRI in [place] indicates there was some concern about dementia or other neurocognitive disorder as explanation for recent unusual behavior. Given the patient has no prior h/o bipolar diagnosis or treatment, and no prior hospitalization for psychiatric issues, neurocognitive disorder is the most likely diagnosis and not bipolar disorder. Therefore, would not recommend prescribing mood stabilizers at this time. They carry significant risks, including risk of CVA and even for patient's who take antipsychotic meds and have dementia. Recommend monitoring patient's condition and requesting records from hospital in [place] where patient was recently treated. 2. Patient slept 45 min last night, but slept > 6 hrs after breakfast for most of the AM and afternoon. 3. Patient presents as confused, disorganized, agitated, uncooperative, delusional. 4. [facility] expires tomorrow. 09/02/18 16:11 1. Patient is more alert and oriented this AM. He is less confused and delusional than yesterday. 2. RN held patient's BP meds d/t hypotension (89/51) this AM. 3. Patient has been less intrusive, more appropriate in behavior toward female peers. Though he still requires some prompting from staff. 4. Patient has had some increased sleep since admission. says he hadn't slept "for days" prior to admission. Last night he slept 14 hrs. 5. Overall, patient appears to be improving without any additional psychotropic meds. MD is holding his VPA and Seroquel for now in order to observe patient without any psych intervention. Since admission, he has increased sleep, decreased impulsivity, less agitation/aggression, no pressured speech or racing thoughts, less hypersexual behavior. 6. Change legal status to [facility] Subjective: Patient has been spending most of the day either napping or isolating in room. He is not trying to kiss female peer on unit next door like he did yesterday. He is calmer, more cooperative, less hyperactive and less impulsive. Objective: Vital Signs Temp Pulse Resp BP Pulse Ox 37.5 C 108 H 16 118/58 L 92 09/02/18 06:00 09/02/18 08:45 09/02/18 08:45 09/02/18 08:45 09/02/18 08:45 MSE: Affect: Less labile, calmer Mood: "Good" TP: More linear and goal- directed today TC: Denies any SI/HI, no intent or plan; less delusional Insight/Judgment: Improving - Time Spent With Patient Time Spent With Patient: 15" - Pending Discharge Pending Discharge Within 24 Hours: No Pending Discharge Within 48 Hours: No ICD10 Worksheet Patient Problems: Problems Problem Status Onset Hypertension Acute
[2018-09-03] MEDS: LORazepam 1 MG TAB PO PRN ×2 (02:44→08:19)
[2018-09-03] MEDS: CEPACOL LOZENGE PO PRN (02:45)
[2018-09-03] MEDS: ACETAMINOPHEN 325 MG TAB PO PRN (02:52)
--- NOTE | 2018-09-03 08:01 | SOAPPROG ---
SOAP Progress Note Assessment/Plan: Assessment: R/O Bipolar Disorder. R/O Neurocognitive Disorder. Slight improvement noted ( see subjective/objective note). Patient exhibits persistent inability to perform essential function due to current condition. Patient is unable to communicate his basic needs appropriately and unable to attend independently and appropriately to ADLs. Patients support system has inability to manage functional impairment at lower level of care. Patient could benefit from continued inpatient hospitalization for crisis stabilization, safety, and medication evaluation. Plan: 1. Psychotropic medications: After reviewing options, risks, and benefits, patient agrees to continue current medications. No medication changes as more time is needed to determine ongoing tolerability and efficacy. Plan is to continue to observe patient for response and side effects from medications, and ongoing monitoring and evaluation. 2. Review with patient informed consent and recommendations for psychotropic medication treatment listed below 3. Labs: no additional at this time 4. Therapy: continue milieu and group therapy 5. Further investigation including gathering information from patients relatives and review of past case records to inform treatment plan. 6. Safety/Wellness plan and follow-up outpatient appointments to be established prior to discharge. Next steps are for patient to meet with primary care provider to plan a safe discharge plan and establish outpatient services for ongoing treatment. 7. Confer with inpatient treatment team regarding treatment plan. 8. Psychosocial stressors addressed through transplant case manager. 9. [facility] status: [facility] 10. Consider discharge tomorrow if patient is in stable condition, safe, and has a safe discharge plan. PSYCHOTROPIC MEDICATION TREATMENT INFORMED CONSENT and RECOMMENDATIONS: Review nature of condition, diagnosis, and prognosis. Review nature and purpose of psychotropic medication treatment. Review type of psychotropic medications being ordered. Review risk and benefits of psychotropic medication treatment. Review probable length of time patient will need to take medications. Review risk and benefits of not undergoing psychotropic medication treatment. Review alternative treatments to psychotropic medications. Review psychotropic medications contraindications, drug-drug interactions, side effects, and importance of reporting any side effects to a psychiatric provider or nurse during inpatient hospitalization, and upon discharge to patients psychiatric outpatient provider, primary care provider, or other health career resource technician. Review importance of asking a nurse, psychiatric provider, or primary care provider any questions or problems concerning the psychotropic medications. Verify patient understands the information that has been provided, and understands, accepts, and agrees to psychotropic medications. Review patients safety plan and importance of patient to report to staff while hospitalized if patient is ever a danger to self/others, or unable to care for self, and upon discharge, the importance for patient to contact [facility] or [facility], or go to the nearest emergency room, if patient is ever a danger to self/others, or unable to care for self. Recommend that upon discharge patient establish medication management treatment with a psychiatric provider, establishes routine therapy appointments, and follow-up with primary care provider. Verify patient understands and agrees to these recommendations. 09/03/18 08:02 Subjective: Following up with patient for evaluation of mood and safety. Patient reports, "Who are you?" Patient reports he doesn't recognize this SHIPPING INSPECTOR. This SHIPPING INSPECTOR explains meeting with the patient last week, and patient states, "Okay, yes, maybe I faintly remember?" Objective: Vital Signs Temp Pulse Resp BP Pulse Ox 36.9 C 120 H 16 112/59 L 93 09/03/18 06:00 09/03/18 06:00 09/03/18 06:00 09/03/18 06:00 09/03/18 06:00 MD REPORT FROM WEEKEND: Bipolar, dementia, or both? Pt slept well over the weekend (14+ hours on Sat night). Less intrusive, impulsive, reckless, hypersexual on Sun. No other s/s roland present. Did not start VPA or Seroquel , wanted to see how he did w/o meds. Curious about records from hospital in [place] from 07/2018. [facility]aced on [facility] CONSULT PHYSICAL THERAPY: [place]. MSE: The patient is a well-nourished male looking stated chronological age. Attire is appropriate and dress is casual. Grooming status is appropriate. Ambulation is independent. Gait is normal and coordinated. Posture is normal and relaxed. Eye contact is appropriate. Motor activity is appropriate with purposeful, organized, coordinated movements; with no involuntary movements. Attitude is uncooperative. Patient appears distracted and does not relate well to this interviewer. Language production is spontaneous. R/R/V normal. Articulation is clear. Patient reports mood as okay with congruent and appropriate affect. Patients thought process is disorganized, non-linear, illogical, and tangential. Patient denies suicidal thoughts, denies homicidal ideation. Patient denies auditory, visual hallucinations. Patient denies delusions. Patient does not appear to be attending to internal stimuli. Patients attention and concentration are fair. Patient is oriented to person, place. Patients insight and judgment are poor. - Time Spent With Patient Time Spent With Patient: 15 minutes, met with patient individually. - Pending Discharge Pending Discharge Within 24 Hours: No Pending Discharge Within 48 Hours: No ICD10 Worksheet Patient Problems: Problems Problem Status Onset Hypertension Acute
[2018-09-03] MEDS: VALSARTAN 160 MG TAB PO SCH (08:17)
[2018-09-03] MEDS: amLODIPine BESYLATE 5 MG TAB PO SCH (08:17)
[2018-09-03] MEDS: MEMANTINE HCL 5 MG TAB PO SCH (08:18)
[2018-09-03] MEDS: OMEGA-3 FATTY ACIDS 1,000 MG CAP PO SCH ×2 (08:18→21:22)
[2018-09-03] MEDS: METOPROLOL SUCCINATE XR 100 MG TAB PO SCH (08:18)
[2018-09-03] MEDS: CHOLECALCIFEROL VIT D3 1,000 UNITS TAB PO SCH (08:19)
[2018-09-03] MEDS: OLANZapine DISINTEGR 5 MG TAB PO PRN ×2 (08:19→15:27)
[2018-09-03] MEDS: ASPIRIN 81 MG CHEWABLE TAB PO SCH (08:19)
[2018-09-03] MEDS: HYDROCHLOROTHIAZIDE 25 MG TAB PO SCH (08:19)
--- NOTE | 2018-09-03 08:39 | ASMTCMCOM ---
CM Note CM Note Notes: CC checked in with ct. He seemed much more subdued today. He reported that he is doing "fine". He slept 14 hrs on Sat. night. When asked how he is doing he said "pretty good unless someone ruins it". He doesn't seems to have very clear memory on the events that brought him to the unit. He said that he had good visits with his and son. Date Signed: 09/03/2018 08:39 AM Electronically Signed By:Bhargavi Arauz
[2018-09-03] MEDS ORDERED: LORazepam 1 MG TAB PO PRN ×2 (11:06→16:45)
--- NOTE | 2018-09-03 13:24 | WOCRNPDOC ---
WOCRN Advanced Assessment Note - Skin Integrity Problem, Advanced Assess Left First Finger Dressing Type: Open to Air Exudate Amount: None Amy Wound Tissue: Crusted, Scarred, Calloused, Hyperkeratotic Site Measurement - Head-to-Toe Length X Width X Depth (cm): 1x1.8x0.5 Skin Integrity Problem Comment: Deep wound from years of neglect of skin care between middle and distal phalanx. The edges are extremely thick and calloused and will not be able to close without significant wound care and possible debridment of the excess skin. Patient should follow up at outpatient wound healing center for continued care. Will moisten wounds and initiate mild autolytic debridment. Cleaned wound bed with ns and gauze. Skin prep applied amy wound. Puracol Ag+ applied to wound bed and then moistened with ns and gauze. Covered by Hydrofera blue ready and secured with tegaderm. Remainder of hands except for wounds were moistened with nutrisheild cream. Starr Mckeon visualized all wound care. Wound care will follow. Left Third Finger Dressing Type: Open to Air Exudate Amount: None Amy Wound Tissue: Scarred, Calloused, Hyperkeratotic Site Measurement - Head-to-Toe Length X Width X Depth (cm): 0.5x1.3x0.3 Skin Integrity Problem Comment: Wound that runs from 3-9 oclock along joint between middle and distal phalanx. Cleaned wound bed with ns and gauze. Skin prep applied amy wound. Puracol Ag+ applied to wound bed and then moistened with ns and gauze. Covered by Hydrofera blue ready and secured with tegaderm. No erythema nor sign of infection in any of the wounds. Left Medial Hand Dressing Type: Open to Air Exudate Amount: None Amy Wound Tissue: Scarred, Calloused, Hyperkeratotic Site Measurement - Head-to-Toe Length X Width X Depth (cm): 0.5x1x0.3 Skin Integrity Problem Comment: Cleaned wound bed with ns and gauze. Skin prep applied amy wound. Puracol Ag+ applied to wound bed and then moistened with ns and gauze. Covered by Hydrofera blue ready and secured with tegaderm. Right First Finger Dressing Type: Open to Air Exudate Amount: None Amy Wound Tissue: Scarred, Calloused, Hyperkeratotic Site Measurement - Head-to-Toe Length X Width X Depth (cm): 0.5x1x0.3 Skin Integrity Problem Comment: Cleaned wound bed with ns and gauze. Skin prep applied amy wound. Wound gel to wound bed. Covered by Hydrofera blue ready and secured with Medipore tape. Right Second Finger Dressing Type: Open to Air Exudate Amount: None Amy Wound Tissue: Scarred, Calloused, Hyperkeratotic Site Measurement - Head-to-Toe Length X Width X Depth (cm): 0.5x1.2x0.3 Skin Integrity Problem Comment: Wound along joint between middle and proximal phalanx. Cleaned wound bed with ns and gauze. Skin prep applied amy wound. Wound gel to wound bed. Covered by Hydrofera blue ready and secured with Medipore tape.
[2018-09-03] MEDS: BENZONATATE 100 MG CAP PO PRN (15:27)
[2018-09-03] MEDS ORDERED: OLANZapine DISINTEGR 5 MG TAB PO PRN (16:30)
[2018-09-04] MEDS: OLANZapine DISINTEGR 5 MG TAB PO PRN (00:20)
[2018-09-04] MEDS: BENZONATATE 100 MG CAP PO PRN ×3 (00:20→14:46)
[2018-09-04] MEDS: ACETAMINOPHEN 325 MG TAB PO PRN (00:20)
[2018-09-04] MEDS: CEPACOL LOZENGE PO PRN ×4 (00:21→21:59)
[2018-09-04] MEDS ORDERED: HYDROCHLOROTHIAZIDE 25 MG TAB PO SCH (09:00)
[2018-09-04] MEDS ORDERED: amLODIPine BESYLATE 5 MG TAB PO SCH (09:00)
[2018-09-04] MEDS ORDERED: VALSARTAN 160 MG TAB PO SCH (09:00)
--- NOTE | 2018-09-04 09:30 | SOAPPROG ---
SOAP Progress Note Assessment/Plan: Assessment: R/O Bipolar Disorder. R/O Neurocognitive Disorder. No improvement noted (see subjective/objective note). Patient exhibits persistent inability to perform essential function due to current condition. Patient is unable to communicate his basic needs appropriately and unable to attend independently and appropriately to ADLs. Patients support system has inability to manage functional impairment at lower level of care. Patient could benefit from continued inpatient hospitalization for crisis stabilization, safety, and medication evaluation. Plan: 1. Psychotropic medications: After reviewing options, risks, and benefits, patient agrees to continue current medications. No medication changes as more time is needed to determine ongoing tolerability and efficacy. Plan is to continue to observe patient for response and side effects from medications, and ongoing monitoring and evaluation. 2. Review with patient informed consent and recommendations for psychotropic medication treatment listed below 3. Labs: no additional at this time 4. Therapy: continue milieu and group therapy 5. Further investigation including gathering information from patients relatives and review of past case records to inform treatment plan. 6. Safety/Wellness plan and follow-up outpatient appointments to be established prior to discharge. Next steps are for patient to meet with managed care nurse to plan a safe discharge plan and establish outpatient services for ongoing treatment. 7. Confer with inpatient treatment team regarding treatment plan. 8. Psychosocial stressors addressed through caseworker. 9. Legal status: [facility] 10. Consider discharge this week if patient is in stable condition, safe, and has a safe discharge plan. PSYCHOTROPIC MEDICATION TREATMENT INFORMED CONSENT and RECOMMENDATIONS: Review nature of condition, diagnosis, and prognosis. Review nature and purpose of psychotropic medication treatment. Review type of psychotropic medications being ordered. Review risk and benefits of psychotropic medication treatment. Review probable length of time patient will need to take medications. Review risk and benefits of not undergoing psychotropic medication treatment. Review alternative treatments to psychotropic medications. Review psychotropic medications contraindications, drug-drug interactions, side effects, and importance of reporting any side effects to a psychiatric provider or nurse during inpatient hospitalization, and upon discharge to patients psychiatric outpatient provider, primary care provider, or other health manager medicare marketing. Review importance of asking a nurse, psychiatric provider, or primary care provider any questions or problems concerning the psychotropic medications. Verify patient understands the information that has been provided, and understands, accepts, and agrees to psychotropic medications. Review patients safety plan and importance of patient to report to staff while hospitalized if patient is ever a danger to self/others, or unable to care for self, and upon discharge, the importance for patient to contact [facility] or [facility], or go to the nearest emergency room, if patient is ever a danger to self/others, or unable to care for self. Recommend that upon discharge patient establish medication management treatment with a psychiatric provider, establishes routine therapy appointments, and follow-up with primary care provider. Verify patient understands and agrees to these recommendations. 09/04/18 09:29 Subjective: Following up with patient for evaluation of mood and safety. Patient reports, "When am I leaving? Maybe I do need to be here." Objective: Vital Signs Temp Pulse Resp BP Pulse Ox 36.9 C 90 16 119/68 94 09/04/18 02:51 09/04/18 08:46 09/04/18 08:46 09/04/18 08:46 09/04/18 08:46 MD REPORT FROM WEEKEND: Bipolar, dementia, or both? Pt slept well over the weekend (14+ hours on Sat night). Less intrusive, impulsive, reckless, hypersexual on Sun. No other s/s roland present. Did not start VPA or Seroquel , wanted to see how he did w/o meds. Curious about records from hospital in [place] from 07/2018. Placed on [facility]. CONSULT NEUROLOGY: Per SOC, patient currently has neurology appointment with Dr. Hannah on September 19, 2018. plans to contact Dr. Lackey office to move appointment to earlier date, and request neurology consult while pt here. Awaiting results from PT consult yesterday for neurocognitive testing. Called and left Mary a voicemail and requested a call back. RN Note from evening shift: Pt became increasingly confused, disoriented, and agitated as evening shift progressed. Required constant redirection from staff, as patient was pushing on doors, going in to other patient's rooms and refusing to leave, and wandering out of staff's sight in expansive unit. Pt very irritable and aggressive when staff intervened with these behaviors. Also refusing medication, stating "I'll take it when the cafeteria clerk come to bust this place. I'm not bothering anyone, so stop bother me." After consulting with RNs on shift, decision was made to move pt into "high acuity" zone to allow closer monitoring and reduce disruption to unit. Staff did weigh the complication of pt's previous flirtatious/inappropriate behavior with [id number], but ultimately decided it would be more therapeutic for pt and milieu to take pt out of "low acuity" zone. Presently, both pt's are interacting appropriately. Will continue to monitor. MSE: The patient is a well-nourished male looking stated chronological age. Attire is appropriate and dress is casual. Grooming status is appropriate. Ambulation is independent. Gait is normal and coordinated. Posture is normal and relaxed. Eye contact is appropriate. Motor activity is appropriate with purposeful, organized, coordinated movements; with no involuntary movements. Attitude is cooperative. Patient appears attentive and relates well to this interviewer. Language production is spontaneous. R/R/V normal. Articulation is clear. Patient reports mood as okay with congruent and appropriate affect. Patients thought process is disorganized, non-linear, illogical, and tangential. Patient denies suicidal thoughts, denies homicidal ideation. Patient denies auditory, visual hallucinations. Patient denies delusions. Patient does not appear to be attending to internal stimuli. Patients attention and concentration are fair. Patient is oriented to person, place. Patients insight and judgment are poor. - Time Spent With Patient Time Spent With Patient: 15 minutes, met with patient individually. - Pending Discharge Pending Discharge Within 24 Hours: No Pending Discharge Within 48 Hours: No ICD10 Worksheet Patient Problems: Problems Problem Status Onset Hypertension Acute
[2018-09-04] MEDS: METOPROLOL SUCCINATE XR 100 MG TAB PO SCH (11:15)
[2018-09-04] MEDS: MEMANTINE HCL 5 MG TAB PO SCH (12:03)
[2018-09-04] MEDS: OMEGA-3 FATTY ACIDS 1,000 MG CAP PO SCH ×2 (12:03→20:34)
--- NOTE | 2018-09-04 15:56 | ASMTCMCOM ---
CM Note CM Note Notes: This marketing underwriter spoke with the provider and associated neurology; Dr. Lackey to consult with patient regarding cognitive exam. This marketing underwriter confirmed extensive collateral cognitive exam from previous out of state provider. Date Signed: 09/04/2018 03:55 PM Electronically Signed By:Radha Tobias
--- NOTE | 2018-09-04 16:30 | HOSPPROG ---
Hospitalist Progress Note Assessment/Plan: * Hypotension -patient is not tolerating his usual BP meds -now tachy - I suspect from beta-junaid withdrawal -will hold amlodipine, diovan and HCTZ -check CBC,7 in am -continue metoprolol if BP tolerates * Bella vs. frontotemporal dementia -could consider neurology consult for assistance -reported recent MRI brain negative in [place] * Prostate CA -unclear status, doesn't appear to be on treatment * Hand wounds -wound care following Subjective: Denies complaints. No dizzy, lightheaded or CP Objective: Vital Signs Temp Pulse Resp BP Pulse Ox 36.9 C 90 16 119/68 94 09/04/18 02:51 09/04/18 08:46 09/04/18 08:46 09/04/18 08:46 09/04/18 08:46 - Physical Exam Constitutional: no apparent distress, appears nourished, not in pain Cardiovascular: regular rate and rhythym, no murmur, rub, or gallop Respiratory: no respiratory distress, no rales or rhonchi, clear to auscultation Gastrointestinal: normoactive bowel sounds, soft, non-tender abdomen, no palpable masses Skin: no rashes or abrasions, no fluctuance, no induration Neurologic: other (gait a little ataxic) Psychiatric: flat affect, poor insight, poor judgement, No interacting appropriately, No agitated ICD10 Worksheet Patient Problems: Problems Problem Status Onset Hypertension Acute
--- NOTE | 2018-09-04 17:00 | NEUROPROG ---
Assessment: Today I am initiating the neurologic consultation and trying to gather some basic information and have a good understanding of the general story. I will dictate a more complete consultation tomorrow. However, the most probable explanation now is that he has a behavioral variant of frontotemporal dementia and associated psychiatric manifestations rather than a primary psychiatric disorder such as bipolar disease given this late onset. I will continue to discuss with Psychiatry, but the bottom line is he remains unsafe to be independent in his current state and will likely need 24 hr supervision in some capacity which will be worked out with case management in the family. There are no specific medications indicated for the treatment of frontotemporal dementia. The control of behavior and mood would be managed just as any other psychiatric condition trying to find the optimal therapy without side effects. Unfortunately, that is likely to be extremely difficult in his case. Subjective: Today I had a 15 min telephone conversation with the patient's son who gave me an overview of the evolution of symptoms since around 2014. I have been reviewing the medical records from [place]. I met with the patient for about 10 min this afternoon and will follow-up with him further. Objective: Vital Signs Temp Pulse Resp BP Pulse Ox 36.9 C 90 16 119/68 94 09/04/18 02:51 09/04/18 08:46 09/04/18 08:46 09/04/18 08:46 09/04/18 08:46 He is currently calm but disorganized and has been demonstrating ongoing inappropriate behavior like wiping the floor with a rash gag and then trying to wipe his lips. He was able to communicate with me by answering questions but was mostly tangential and then socially friendly making simple conversations such as saying that he felt I was a good doctor and thinks he has met me in the past, but I do not believe that to be true. He mostly says his thinks there is a problem and he does not. He demonstrated no real insight regarding his limitations and simply says he wants to get back to [place] and work on some of his properties. He did not express hallucinations. No particular abnormal movements, but he is a little bit bradykinetic. Allergies/Adverse Reactions: Beef Containing Products [beef] Allergy (Verified 08/30/18 17:55)
[2018-09-04] MEDS: ASPIRIN 81 MG CHEWABLE TAB PO SCH (20:35)
[2018-09-04] MEDS: CHOLECALCIFEROL VIT D3 1,000 UNITS TAB PO SCH (20:35)
[2018-09-04] MEDS: GUAIFENESIN/DM 10 ML UDCUP PO PRN (20:37)
[2018-09-04] MEDS: LORazepam 0.5 MG TAB PO PRN (22:59)
--- NOTE | 2018-09-05 05:55 | SOAPPROG ---
SOAP Progress Note Assessment/Plan: Assessment: Frontotemporal dementia. No improvement noted (see subjective/objective note). Patient exhibits persistent inability to perform essential function due to current condition. Patient is unable to communicate his basic needs appropriately and unable to attend independently and appropriately to ADLs. Patients support system has inability to manage functional impairment at lower level of care. Patient could benefit from continued inpatient hospitalization for crisis stabilization, safety, and medication evaluation. Plan: 1. Psychotropic medications: After reviewing options, risks, and benefits, patient agrees to continue current medications. No medication changes as more time is needed to determine ongoing tolerability and efficacy. Plan is to continue to observe patient for response and side effects from medications, and ongoing monitoring and evaluation. 2. Review with patient informed consent and recommendations for psychotropic medication treatment listed below 3. Labs: no additional at this time 4. Therapy: continue milieu and group therapy 5. Further investigation including gathering information from patients relatives and review of past case records to inform treatment plan. 6. Safety/Wellness plan and follow-up outpatient appointments to be established prior to discharge. Next steps are for patient to meet with healthcare consultant to plan a safe discharge plan and establish outpatient services for ongoing treatment. 7. Confer with inpatient treatment team regarding treatment plan. 8. Psychosocial stressors addressed through field nurse case manager. 9. Legal status: [facility] [place] 10. Consider discharge this week if patient is in stable condition, safe, and has a safe discharge plan. PSYCHOTROPIC MEDICATION TREATMENT INFORMED CONSENT and RECOMMENDATIONS: Review nature of condition, diagnosis, and prognosis. Review nature and purpose of psychotropic medication treatment. Review type of psychotropic medications being ordered. Review risk and benefits of psychotropic medication treatment. Review probable length of time patient will need to take medications. Review risk and benefits of not undergoing psychotropic medication treatment. Review alternative treatments to psychotropic medications. Review psychotropic medications contraindications, drug-drug interactions, side effects, and importance of reporting any side effects to a psychiatric provider or nurse during inpatient hospitalization, and upon discharge to patients psychiatric outpatient provider, primary care provider, or other health hearing care practitioner. Review importance of asking a nurse, psychiatric provider, or primary care provider any questions or problems concerning the psychotropic medications. Verify patient understands the information that has been provided, and understands, accepts, and agrees to psychotropic medications. Review patients safety plan and importance of patient to report to staff while hospitalized if patient is ever a danger to self/others, or unable to care for self, and upon discharge, the importance for patient to contact [facility] or [facility], or go to the nearest emergency room, if patient is ever a danger to self/others, or unable to care for self. Recommend that upon discharge patient establish medication management treatment with a psychiatric provider, establishes routine therapy appointments, and follow-up with primary care provider. Verify patient understands and agrees to these recommendations. 09/05/18 05:54 Subjective: Following up with patient for evaluation of mood and safety. Patient reports, "Hi. Im doing okay. Got this cold under control. 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 Don't worry about me, if I start feeling bad, I'm in the right place." Objective: Vital Signs Temp Pulse Resp BP Pulse Ox 36.9 C 90 16 128/78 H 94 09/04/18 02:51 09/04/18 08:46 09/04/18 15:00 09/04/18 15:00 09/04/18 15:00 MSE: The patient is a well-nourished male looking stated chronological age. Attire is appropriate and dress is casual. Grooming status is appropriate. Ambulation is independent. Gait is normal and coordinated. Posture is normal and relaxed. Eye contact is appropriate. Motor activity is appropriate with purposeful, organized, coordinated movements; with no involuntary movements. Attitude is cooperative. Patient appears distracted and does not relate well to this interviewer. Language production is spontaneous. R/R/V normal. Articulation is clear. Patient reports mood as okay with congruent and appropriate affect. Patients thought process is disorganized, non-linear, illogical, and tangential. Patient denies suicidal thoughts, denies homicidal ideation. Patient denies auditory, visual hallucinations. Patient denies delusions. Patient does not appear to be attending to internal stimuli. Patients attention and concentration are poor. Patient is oriented to person, place. Patients insight and judgment are poor. - Time Spent With Patient Time Spent With Patient: 15 minutes, met with patient individually. - Pending Discharge Pending Discharge Within 24 Hours: No Pending Discharge Within 48 Hours: No ICD10 Worksheet Patient Problems: Problems Problem Status Onset Frontotemporal dementia Chronic Hypertension Acute
[2018-09-05] MEDS: MEMANTINE HCL 5 MG TAB PO SCH ×2 (08:02→08:49)
[2018-09-05] MEDS: METOPROLOL SUCCINATE XR 100 MG TAB PO SCH ×2 (08:02→08:49)
[2018-09-05] MEDS: OMEGA-3 FATTY ACIDS 1,000 MG CAP PO SCH ×2 (08:02→20:21)
--- NOTE | 2018-09-05 08:50 | ASMTCMCOM ---
CM Note CM Note Notes: CC checked in with ct. Ct. is neatly dressed but appears tired. Ct. reported that he is "pretty much on top of everything". Ct. is able to carry superficial conversation but he tends to get tangential. Ct. is aware that he is in a hospital in [place]. Ct. was seen by Dr. Lackey who changed his diagnosis to Frontotemporal Dementia. Per Dr. Lackey ct. would most likely need 24 hr supervision. Plan is to have a family meeting with ct.'s and son to discuss care options and help with discharge planning. Date Signed: 09/05/2018 08:50 AM Electronically Signed By:Bhargavi Arauz
[2018-09-05 09:23] LABS: PLATELET COUNT 136 10^3/uL (150-400)
--- NOTE | 2018-09-05 10:31 | GCON ---
[f rep st] CONSULTATION NEUROLOGIC CONSULTATION The patient is a 78-year-old gentleman who I am asked to see in neurologic consultation from [facility] nurse practitioner, Ricky Casey. I had a conversation yesterday for 50 minutes with the patient 's son detailing his perspective on what has happened over time. I also have a neuropsychological re port from Dr. Torres Bojorquez with [facility] with dates of evaluation of April 27 and April 28, 2015. There is neurologic information from a neurologist named Dr. Tony rodriguez, who is in [place], [place], and has an evaluation from April 2015, as well as a let ter from June 2015 in which he states the patient has frontotemporal dementia with cognitive beha vioral and mood disturbance. There is also some limited information from hospitalization in [place], [place] at [facility] admission July 26, 2018, discharged August 06, 2018, where he was seen by 2 different psychiatrists. The patient does not have a prior history of any known psychiatric illness until around 2014. This i s documented from history and physical at that time and confirmation from his son. At that time, he was manifesting with significant changes since February 2015 when he was described as acting erratic w ith having poor focus and various obsessive tendencies. He started to change his buying habits and w as randomly buying items at thrift stores that were out of character for him. He was giving unsolici will advice about real estate. He was having trouble with safe behaviors. He was starting to talk to strangers regularly. He would invite strangers to his home. He was forgetful and inattentive. He was having trouble carrying out tasks that would not normally have been difficult for him in the past . He had trouble falling asleep and waking up early. At 1 point he told his he wanted to look up an ex-girlfriend from 50 years earlier and wanted to divorce her. He would make more aggressive s tatements about how he wanted to take money out of their intermediate to buy this girlfriend a house an d put her in his Will. He had buddhism reference at 1 point saying "God told him everything was goi ng to be okay." There were other problems with similar behaviors in the next month. He would go to the beach and invite people back to his house. He was buying gifts for strangers' children. A polic e report was filed alleging that this man was stalking the family. Historically, he has not had prev ious legal problems. He has been arroyo and irritable with paranoid thoughts about his 's intenti ons. He had been verbally abusive toward her, but no reports of physical abuse. When he saw the int erviewer, he was irritated and confrontational, but eventually started to participate somewhat in the exam. Historically, there is a history of hypertension, hyperlipidemia, TIA, but imaging of the head in Apr on a head CT did not show anything specific. Labs over the time in the past had been unre markable. He has generally been successful in his prior work and had a master's degree in education. 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 There are not reports of specific behavioral problems as a child and no reports of abuse. There is mention that in the past he did take some Ativan for anxiety. After going through this time frame, he had the neurologic evaluation and the note from April 2015 assesses that he might have dementia with Lewy bodies, and there was the recommendation for the neur opsychological testing. At that time, a low dose of Aricept was initiated. At [facility] te , which we will send to have scanned into his record, ultimately concluded a provisional diagnosis of frontotemporal dementia. More recently, over the last several years, he seemed to stabilize according to his son, but then sin june, there have been major changes. He has had repeated run ins with individuals in his comm unity in [place] and reportedly has had multiple interactions with the police and calling the local mayor, making inappropriate statements and expressing paranoid thinking. At 1 point, he was st anding on a bridge and trying to wave down cars for unclear reasons. He has been treated in [facility] with Zyprexa, as well as lithium, lorazepam and risperidone at various times. 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 His son said there was originally some thinking that prior exposure to a statin might have been associated with this and when that was stopped, he seemed to be getting better, but is now unclear if that has any role. He had valproic acid discontinued and Seroquel discontinued, and received some Zyprexa and Ativan a few days ago, but then became a bit mo re lethargic. He is currently on Namenda and quetiapine. He did not seem to benefit from valproic a yefri. He continues to demonstrate various behaviors in the past with some inappropriate behavior such as bu lynette a brand new car, talking about wanting to buy his a car, and hyperverbal. He can be inappr opriate with sexual comments or connotations. He apparently was alleged to have said something inapp ropriate to the nanny of someone in the neighborhood recently. At times, he can be relatively calm and carry out some activities but sustain focus is limited. MEDICATIONS: Currently, he has medications that include Norvasc, aspirin, vitamin D, hydrochlorothia zide, lorazepam as needed, Namenda 10 mg daily, metoprolol, olanzapine 5 mg b.i.d. At home he was on quetiapine 150 mg at night, the Namenda 10 mg daily, and valproic acid 500 mg at night. ALLERGIES: No medication allergies noted. PHYSICAL EXAMINATION: VITAL SIGNS: Blood pressure is 105/63, pulse of 106, respirations 16, tempera ture 36.6. GENERAL: He is well developed, no acute distress. He is mildly bradykinetic with a flat tened expression. He denies feeling anxious or depressed. In a matter of fact tone, he will say taye t he does not know why he needs to be here. He can be very easily distracted and tangential, and imp ulsively go to perform some behaviors. When I walked onto the unit last evening he was wiping the fl oor with a little rag and staff told me that at times he would then try to put the rag on his lips. When I took him to his room, it took a little bit of time to get him back to the bed to communicate w ith me, which he did in a calm fashion. He had previously been doing something in the bathroom with trying to clean up his hands. He referenced my name as if he knew me or might know my brother who is also a doctor, but could not explain how he would have that knowledge. He demonstrated no insight r egarding his challenges. He mostly references his feeling concerned about him, but did not make any specific references to other individuals in his life. He was not expressing overt hallucination s or delusions during the interview. He would follow my basic instructions. He sat calmly on the be d most of the time. He did not have focal numbness or weakness. No tremor. As noted, he is a littl e bit bradykinetic without asymmetry of movements. He ambulates a little slowly, but maintains levar ce fairly well. His voice is generally soft throughout the visit. Staff tells me at times he would be wandering into other patient's rooms, but was not aggressive toward anyone. LABORATORY STUDIES: Reveal unremarkable CBC and electrolytes. Urinalysis and tox screen were unrema rkable, except he had the valproic acid level of 26.4. IMPRESSION: Total unit time of 75 minutes. The patient has a working diagnosis of behavioral varian t of frontotemporal dementia, more likely than any primary psychiatric diagnosis like bipolar disease based on his overall history and presentation. The sustained period of doing relatively well over t he last several years is unusual, but I would still favor that is the most likely diagnosis upon ic h to make prognostic implications and treatment strategies. The behavioral manifestations and other behaviors are consistent with what is typically seen with the behavioral variant of frontotemporal de mentia and is being treated appropriately. I reviewed the literature through up to date and other re ferences. Continuing use of the olanzapine is appropriate or use of Seroquel, but no specific eviden ce that one is superior to the other. It is recommended not to use risperidone. For behavioral rosales fication, it is recommended to consider citalopram or similar antidepressant, anxiolytic type medicat ions in low doses and adjust accordingly. Trying to modify behavior through reassurance and consiste ncy of environment is appropriate. This patient should no longer be allowed to drive due to risk to himself and others of accident and impulsive behavior. I believe he needs 24/7 supervision because o f his tendency to make bad choices and demonstrated impulsive behavior which could cause potential ri sks to others or put him at risk of legal issues. I do not believe it is appropriate for him to carter ge any of his personal finances, and I do not believe he is appropriate for making any decisions abou t his long-term care. This should be through his family. He will need outpatient psychiatry care an d his son says they have an appointment in October with Dr. Holden Pruett. I will continue to be able to follow him for neurologic care as needed. In all probability, most issues will be related to managem ent of his psychiatric pathology as part of the spectrum of this disorder. Further diagnostic studie s with brain MRI or PET scan can be considered as an outpatient, although this is predominantly a cli nical diagnosis. The [facility], we can certainly arrange for that. I discussed an overview of my thoughts and recommendation s to Ricky Casey this morning. Copy requested to: MD Dr. Holden Judd /[id number]/MODL
--- NOTE | 2018-09-05 14:11 | ASMTBHFAM ---
Notes Note: Notes: Both CC (Radha Burk) met with WOC and SOC to discuss the team's recommendation for discharge. Per Dr. Lackey ct. should be placed under 24hr supervision. WOF and BOC agreed to be ct.'s medical proxy. Discussed residential Vs. home health care. Family feels that a residential is appropriate. They agreed to look into residential options. They are going to call Medicare and to find out more information about hospital days and also to find out if they have any recommendations for nursing homes placement in the area. Family requested that ct. gets a PET scan. Date Signed: 09/05/2018 02:10 PM Electronically Signed By:Bhargavi Arauz
[2018-09-05] MEDS: BENZONATATE 100 MG CAP PO PRN ×2 (16:53→20:28)
[2018-09-05] MEDS: ASPIRIN 81 MG CHEWABLE TAB PO SCH (20:22)
[2018-09-05] MEDS: CHOLECALCIFEROL VIT D3 1,000 UNITS TAB PO SCH (20:22)
--- NOTE | 2018-09-06 05:31 | SOAPPROG ---
SOAP Progress Note Assessment/Plan: Assessment: Frontotemporal dementia. No improvement noted (see subjective/objective note). Patient exhibits persistent inability to perform essential function due to current condition. Patient is unable to communicate his basic needs appropriately and unable to attend independently and appropriately to ADLs. Patients support system has inability to manage functional impairment at lower level of care. Patient could benefit from continued inpatient hospitalization for crisis stabilization, safety, and medication evaluation. Plan: 1. Psychotropic medications: After reviewing options, risks, and benefits, patient agrees to continue current medications. No medication changes as more time is needed to determine ongoing tolerability and efficacy. Plan is to continue to observe patient for response and side effects from medications, and ongoing monitoring and evaluation. 2. Review with patient informed consent and recommendations for psychotropic medication treatment listed below 3. Labs: no additional at this time 4. Therapy: continue milieu and group therapy 5. Further investigation including gathering information from patients relatives and review of past case records to inform treatment plan. 6. Safety/Wellness plan and follow-up outpatient appointments to be established prior to discharge. Next steps are for patient to meet with customer care representative to plan a safe discharge plan and establish outpatient services for ongoing treatment. 7. Confer with inpatient treatment team regarding treatment plan. 8. Psychosocial stressors addressed through case supervisor. 9. Legal status: [facility] 10. Consider discharge this week if patient is in stable condition, safe, and has a safe discharge plan. PSYCHOTROPIC MEDICATION TREATMENT INFORMED CONSENT and RECOMMENDATIONS: Review nature of condition, diagnosis, and prognosis. Review nature and purpose of psychotropic medication treatment. Review type of psychotropic medications being ordered. Review risk and benefits of psychotropic medication treatment. Review probable length of time patient will need to take medications. Review risk and benefits of not undergoing psychotropic medication treatment. Review alternative treatments to psychotropic medications. Review psychotropic medications contraindications, drug-drug interactions, side effects, and importance of reporting any side effects to a psychiatric provider or nurse during inpatient hospitalization, and upon discharge to patients psychiatric outpatient provider, primary care provider, or other health health care liaison. Review importance of asking a nurse, psychiatric provider, or primary care provider any questions or problems concerning the psychotropic medications. Verify patient understands the information that has been provided, and understands, accepts, and agrees to psychotropic medications. Review patients safety plan and importance of patient to report to staff while hospitalized if patient is ever a danger to self/others, or unable to care for self, and upon discharge, the importance for patient to contact [place] [facility] or 1, or go to the nearest emergency room, if patient is ever a danger to self/others, or unable to care for self. Recommend that upon discharge patient establish medication management treatment with a psychiatric provider, establishes routine therapy appointments, and follow-up with primary care provider. Verify patient understands and agrees to these recommendations. 09/06/18 05:31 Subjective: Following up with patient for evaluation of mood and safety. Patient reports, "Good morning. I am okay. Feeling pretty good today." Objective: Vital Signs Temp Pulse Resp BP Pulse Ox 36.6 C 106 H 16 105/63 94 09/05/18 06:00 09/05/18 06:00 09/05/18 06:00 09/05/18 06:00 09/05/18 06:00 Laboratory Results 09/05/18 05:45 09/05/18 05:45 MSE: The patient is a well-nourished male looking stated chronological age. Attire is appropriate and dress is casual. Grooming status is appropriate. Ambulation is independent. Gait is normal and coordinated. Posture is normal and relaxed. Eye contact is appropriate. Motor activity is appropriate with purposeful, organized, coordinated movements; with no involuntary movements. Attitude is cooperative. Patient appears distracted and does not relate well to this interviewer. Language production is spontaneous. R/R/V normal. Articulation is clear. Patient reports mood as okay with congruent and appropriate affect. Patients thought process is disorganized, non-linear, illogical, and tangential. Patient denies suicidal thoughts, denies homicidal ideation. Patient denies auditory, visual hallucinations. Patient denies delusions. Patient does not appear to be attending to internal stimuli. Patients attention and concentration are poor. Patient is oriented to person, place. Patients insight and judgment are poor. - Time Spent With Patient Time Spent With Patient: 15 minutes, met with patient individually. - Pending Discharge Pending Discharge Within 24 Hours: No Pending Discharge Within 48 Hours: No ICD10 Worksheet Patient Problems: Problems Problem Status Onset Psychosis Acute Frontotemporal dementia Chronic Hypertension Acute
[2018-09-06] MEDS: MEMANTINE HCL 5 MG TAB PO SCH (09:02)
[2018-09-06] MEDS: OMEGA-3 FATTY ACIDS 1,000 MG CAP PO SCH ×2 (09:02→20:25)
[2018-09-06] MEDS: METOPROLOL SUCCINATE XR 100 MG TAB PO SCH (09:03)
--- NOTE | 2018-09-06 13:40 | ASMTCMCOM ---
CM Note CM Note Notes: CC checked in with ct. He was pleasant and cooperative but did not remember this worker. Staff reports that ct. appears to be hyper-sexual and was inappropriately seeking the company of a much younger ct. on the unit. Date Signed: 09/06/2018 01:40 PM Electronically Signed By:Bhargavi Arauz
--- NOTE | 2018-09-06 13:45 | ASMTBHDC ---
Notes Note: Notes: CC met with WOC who reported that the family decided to work with Melba from [facility] who will help them find a half-way jail facility. Melba will come to conduct an assessment with ct. tomorrow at 1:30. Date Signed: 09/06/2018 01:44 PM Electronically Signed By:Bhargavi Arauz
--- NOTE | 2018-09-06 14:03 | HOSPPROG ---
Hospitalist Progress Note Assessment/Plan: * HTN -on 4 drugs at home, but BP running very low here -currently on metoprolol only and holding other meds -increase VS check to Q8 hours -spoke to - patient will not let her assist with BP meds at home -with his dementia, he is unlikely to be taking them consistently -if BP remain this low, I would discharge on metoprolol only for HTN -likely to DC to NH so meds and BP will have closer monitoring * Frontotemporal dementia -psychiatric manifestations of dementia are severe -has roland and inappropriate behaviors -neurology following -psych meds for behavioral control per psych team * Prostate CA -unclear status, doesn't appear to be on treatment * Hand wounds -wound care following * Cough -suspect viral bronchitis - says she recently suffering from similar illness * Pre-cancerous skin lesions - brought in cream from home prescribed by virtual office assistant Hospitalist medicine to sign off, please re-consult if further assistance needed. Subjective: No new complaints, acting inappriate to the other young female patients on the unit. Objective: Vital Signs Temp Pulse Resp BP Pulse Ox 36.4 C 74 16 148/71 H 97 09/06/18 06:00 09/06/18 13:28 09/06/18 13:28 09/06/18 13:28 09/06/18 13:28 Laboratory Results 09/05/18 05:45 09/05/18 05:45 - Physical Exam Constitutional: no apparent distress, appears nourished, not in pain Cardiovascular: regular rate and rhythym, no murmur, rub, or gallop Respiratory: no respiratory distress, no rales or rhonchi, clear to auscultation Skin: erythema, rash Neurologic: No AAOx3 Psychiatric: poor insight, poor judgement, poor memory, other (pleasant and cooperative but confabulatory and inappropriate), No interacting appropriately, No encephalopathic, No agitated ICD10 Worksheet Patient Problems: Problems Problem Status Onset Psychosis Acute Frontotemporal dementia Chronic Hypertension Acute
--- NOTE | 2018-09-06 19:36 | WOCRNPDOC ---
WOCRN Advanced Assessment Note - Skin Integrity Problem, Advanced Assess Left First Finger Dressing Type: Hydrofera Blue Ready Dressing Description: Clean/Dry, Intact Exudate Amount: None Integumentary Issue Intervention: Dressing Changed Amy Wound Tissue: Scarred, Calloused, Hyperkeratotic Extremity Temperature: Cool Skin Integrity Problem Comment: Skin on hands appears to be much better moisturized and healthier. Fingers cool to the touch. SLAT GRADER >3. No sign of infection in either hand nor on any of the fingers. Of note however the lunula of this nail has turned light purple in color, which is a change since Monday. Fissures on hands do not appear to have softened yet. Reviewed wound care dressing change orders with RN. Cleaned with ns and gauze. Skin prep applied amy wound. Wounds on left hand applied collagen to wound bed, moistened with ns and then covered with a small piece of hydrofera blue secured with tegaderm. RN Milka assissted with wound care. Patient;s son and were both present as well. Education with family, patient and RN regarding wound care treatement plan, dressing supplies, wound healing trajectory and general skin care. All questions answered. Patient/family advised to call for appointment at outpatient wound healing center tomorrow to set up a follow up appointment. Wound care will continue to follow. Thank you for your consultation. Left Third Finger Dressing Type: Hydrofera Blue Ready Dressing Description: Clean/Dry, Intact Exudate Amount: None Integumentary Issue Intervention: Dressing Changed Amy Wound Tissue: Scarred, Calloused, Hyperkeratotic Extremity Temperature: Cool Skin Integrity Problem Comment: Cleaned with ns and gauze. Wounds on left hand applied collagen to wound bed, moistened with ns and then covered with a small piece of hydrofera blue secured with tegaderm. Left Medial Hand Dressing Type: Hydrofera Blue Ready Exudate Amount: None Integumentary Issue Intervention: Dressing Changed Amy Wound Tissue: Scarred, Calloused, Hyperkeratotic Skin Integrity Problem Comment: Cleaned with ns and gauze. Wounds on left hand applied collagen to wound bed, moistened with ns and then covered with a small piece of hydrofera blue secured with tegaderm. Right First Finger Dressing Type: Hydrofera Blue Ready Exudate Amount: None Integumentary Issue Intervention: Dressing Changed Amy Wound Tissue: Erythema (mild and appears to be consistent day to day. ), Scarred, Calloused, Hyperkeratotic Skin Integrity Problem Comment: Cleaned with ns and gauze. Skin prep amy wound. Wound gel to wound bed, then covered with a small piece of non bordered mepilex foam, secured with tegaderm. No sign of infection. Right Second Finger Dressing Type: Hydrofera Blue Ready Exudate Amount: None Integumentary Issue Intervention: Dressing Changed Amy Wound Tissue: Scarred, Calloused, Hyperkeratotic Extremity Temperature: Cool Skin Integrity Problem Comment: Cleaned with ns and gauze. Skin prep amy wound. Wound gel to wound bed, then covered with a small piece of non bordered mepilex foam, secured with tegaderm. No sign of infection.
[2018-09-06] MEDS: CHOLECALCIFEROL VIT D3 1,000 UNITS TAB PO SCH (20:25)
[2018-09-06] MEDS: ASPIRIN 81 MG CHEWABLE TAB PO SCH (20:26)
[2018-09-06] MEDS: BENZONATATE 100 MG CAP PO PRN (20:26)
[2018-09-07] MEDS: ACETAMINOPHEN 325 MG TAB PO PRN (03:11)
[2018-09-07] MEDS: LORazepam 0.5 MG TAB PO PRN (03:12)
[2018-09-07] MEDS: OLANZapine DISINTEGR 5 MG TAB PO PRN (03:12)
[2018-09-07] MEDS: GUAIFENESIN/DM 10 ML UDCUP PO PRN (03:13)
--- NOTE | 2018-09-07 07:40 | SOAPPROG ---
SOAP Progress Note Assessment/Plan: Assessment: Frontotemporal dementia. No improvement noted (see subjective/objective note). Patient exhibits persistent inability to perform essential function due to current condition. Patient is unable to communicate his basic needs appropriately and unable to attend independently and appropriately to ADLs. Patients support system has inability to manage functional impairment at lower level of care. Patient could benefit from continued inpatient hospitalization for crisis stabilization, safety, and medication evaluation. Plan: 1. Psychotropic medications: After reviewing options, risks, and benefits, patient agrees to continue current medications. No medication changes as more time is needed to determine ongoing tolerability and efficacy. Plan is to continue to observe patient for response and side effects from medications, and ongoing monitoring and evaluation. 2. Review with patient informed consent and recommendations for psychotropic medication treatment listed below 3. Labs: no additional at this time 4. Therapy: continue milieu and group therapy 5. Further investigation including gathering information from patients relatives and review of past case records to inform treatment plan. 6. Safety/Wellness plan and follow-up outpatient appointments to be established prior to discharge. Next steps are for patient to meet with career orientation teacher to plan a safe discharge plan and establish outpatient services for ongoing treatment. 7. Confer with inpatient treatment team regarding treatment plan. 8. Psychosocial stressors addressed through family preservation caseworker. 9. Legal status: [facility] 10. Consider discharge this week if patient is in stable condition, safe, and has a safe discharge plan. PSYCHOTROPIC MEDICATION TREATMENT INFORMED CONSENT and RECOMMENDATIONS: Review nature of condition, diagnosis, and prognosis. Review nature and purpose of psychotropic medication treatment. Review type of psychotropic medications being ordered. Review risk and benefits of psychotropic medication treatment. Review probable length of time patient will need to take medications. Review risk and benefits of not undergoing psychotropic medication treatment. Review alternative treatments to psychotropic medications. Review psychotropic medications contraindications, drug-drug interactions, side effects, and importance of reporting any side effects to a psychiatric provider or nurse during inpatient hospitalization, and upon discharge to patients psychiatric outpatient provider, primary care provider, or other health primary care sales representative. Review importance of asking a nurse, psychiatric provider, or primary care provider any questions or problems concerning the psychotropic medications. Verify patient understands the information that has been provided, and understands, accepts, and agrees to psychotropic medications. Review patients safety plan and importance of patient to report to staff while hospitalized if patient is ever a danger to self/others, or unable to care for self, and upon discharge, the importance for patient to contact [place] [facility] or 1, or go to the nearest emergency room, if patient is ever a danger to self/others, or unable to care for self. Recommend that upon discharge patient establish medication management treatment with a psychiatric provider, establishes routine therapy appointments, and follow-up with primary care provider. Verify patient understands and agrees to these recommendations. 09/06/18 05:31 Subjective: Following up with patient for evaluation of mood and safety. Patient reports, "Hi. Good morning. I am okay." Objective: Vital Signs Temp Pulse Resp BP Pulse Ox 36.4 C 74 16 148/71 H 97 09/06/18 06:00 09/06/18 13:28 09/06/18 13:28 09/06/18 13:28 09/06/18 13:28 Laboratory Results 09/05/18 05:45 09/05/18 05:45 MSE: The patient is a well-nourished male looking stated chronological age. Attire is appropriate and dress is casual. Grooming status is appropriate. Ambulation is independent. Gait is normal and coordinated. Posture is normal and relaxed. Eye contact is appropriate. Motor activity is appropriate with purposeful, organized, coordinated movements; with no involuntary movements. Attitude is cooperative. Patient appears distracted and does not relate well to this interviewer. Language production is spontaneous. R/R/V normal. Articulation is clear. Patient reports mood as okay with congruent and appropriate affect. Patients thought process is disorganized, non-linear, illogical, and tangential. Patient denies suicidal thoughts, denies homicidal ideation. Patient denies auditory, visual hallucinations. Patient denies delusions. Patient does not appear to be attending to internal stimuli. Patients attention and concentration are poor. Patient is oriented to person, place. Patients insight and judgment are poor. - Time Spent With Patient Time Spent With Patient: 15 minutes, met with patient individually. - Pending Discharge Pending Discharge Within 24 Hours: No Pending Discharge Within 48 Hours: No ICD10 Worksheet Patient Problems: Problems Problem Status Onset Psychosis Acute Frontotemporal dementia Chronic Hypertension Acute
--- NOTE | 2018-09-07 09:33 | NEUROPROG ---
Assessment: I looked into whether was an option to have the patient obtain a PET scan while in the hospital, but that is not an option. This is something that can be done as an outpatient. Objective: Vital Signs Temp Pulse Resp BP Pulse Ox 36.4 C 74 16 148/71 H 97 09/06/18 06:00 09/06/18 13:28 09/06/18 13:28 09/06/18 13:28 09/06/18 13:28 Laboratory Results 09/05/18 05:45 09/05/18 05:45 Allergies/Adverse Reactions: Beef Containing Products [beef] Allergy (Verified 08/30/18 17:55)
[2018-09-07] MEDS: METOPROLOL SUCCINATE XR 100 MG TAB PO SCH (09:50)
[2018-09-07] MEDS: MEMANTINE HCL 5 MG TAB PO SCH (09:50)
[2018-09-07] MEDS: OMEGA-3 FATTY ACIDS 1,000 MG CAP PO SCH ×2 (09:51→20:47)
--- NOTE | 2018-09-07 15:40 | ASMTCMCOM ---
CM Note CM Note Notes: The patient reported that he was preparing for discharge and planned to return to [place]. The patient inquired about this designer/writer, including age, well-being, evening plans, etc. The patient was redirected. Melba, [facility], visited the patient to discuss his transition out of the hospital. Melba plans to "hold the familie's hand" through the transition until he is establish in a retirement care facility. Date Signed: 09/07/2018 03:39 PM Electronically Signed By:Radha Tobias
[2018-09-07] MEDS: ASPIRIN 81 MG CHEWABLE TAB PO SCH (20:46)
[2018-09-07] MEDS: CHOLECALCIFEROL VIT D3 1,000 UNITS TAB PO SCH (20:47)
[2018-09-08] MEDS: OMEGA-3 FATTY ACIDS 1,000 MG CAP PO SCH ×2 (08:21→21:48)
[2018-09-08] MEDS: MEMANTINE HCL 5 MG TAB PO SCH (08:21)
[2018-09-08] MEDS: METOPROLOL SUCCINATE XR 100 MG TAB PO SCH (08:21)
--- NOTE | 2018-09-08 20:09 | SOAPPROG ---
SOAP Progress Note Assessment/Plan: Assessment: This is a 78-year-old male presents with his family with a primary requests that he wants to be able to drive again. History was obtained from both the patient as well as his family members. Patient has been in [place] since June and was admitted to the [facility] and diagnosed with an unspecified psychosis. Patient is currently taking Depakote. The son believes he may have bipolar disorder. Patient returned from [place] 2 weeks ago. 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 WEEKEND PLAN: 09/08/18 18:56 1. Patient evaluated by neurologist, Dr. 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 Memantine has not been shown to be effective for tx of FTD , though it is often prescribed. As Dr. Lackey notes in his evaluation, there are some potential benefits from SSRIs and trazodone. Small clinical trials show limited benefit from SSRIs for mood-related sxs of bvFTD. Trazodone has also shown limited benefit for sleep and aberrant behaviors. Based on these recommendations, suggest trial of trazodone, since patient has consistently gotten < 4 hrs sleep each night in hospital (and often significantly less). 2. MD spoke at length with patient's and his son about medication options including starting SSRI versus trazodone. Both and son gave consent to initiate trial of trazodone first, and then decide whether to add an SSRI later. MD answered numerous questions family had about patient's diagnosis and condition. MD stated he agreed with Dr. 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 Son still wondered if patient could have bipolar or a different form of dementia, such as Alzheimer's. MD felt strongly that the most accurate diagnosis that fits the patient's presentation and hx of symptoms since 2014 is a frontotemporal dementia. Son said he would like to pursue getting a PET scan for reassurance. MD agreed this was reasonable, and family is following up with Dr. Lackey to get one. 3. Family is looking at placement options including assisted living and memory care facilities. They have several appointments this week to look at facilities in the area. They said they would update the CM when they have more information. 4. Hospitalist is following patient for HTN and other medical issues. Wound care has seen patient multiple times and dressed wounds on both hands. Subjective: Patient was upset earlier today when told him she and their son were looking at an assisted living placement. Patient insists he doesn't need that level of care and says, "I can still work." Patient's son told MD that his father has not accepted that he has dementia and needs long-term placement. Patient continues to have loss of inhibition and socially inappropriate behavior. He does not endorse any SI/HI. He denies any AH/VH. Objective: Vital Signs Temp Pulse Resp BP Pulse Ox 36.4 C 77 16 143/85 H 96 09/08/18 08:00 09/08/18 08:00 09/08/18 08:00 09/08/18 08:00 09/08/18 08:00 Laboratory Results 09/05/18 05:45 09/05/18 05:45 MSE: Affect: Labile, angry this afternoon, calmer this evening Mood: "OK" TP: Disorganized, brief periods of alertness TC: No SI/HI Insight/Judgment: Impaired - Time Spent With Patient Time Spent With Patient: 15" + 45" with family - Pending Discharge Pending Discharge Within 24 Hours: No Pending Discharge Within 48 Hours: No ICD10 Worksheet Patient Problems: Problems Problem Status Onset Psychosis Acute Frontotemporal dementia Chronic Hypertension Acute
[2018-09-08] MEDS ORDERED: traZODone 50 MG TAB PO SCH (21:00)
[2018-09-08] MEDS: CHOLECALCIFEROL VIT D3 1,000 UNITS TAB PO SCH (21:49)
[2018-09-08] MEDS: ASPIRIN 81 MG CHEWABLE TAB PO SCH (21:49)
[2018-09-08] MEDS: traZODone 50 MG TAB PO SCH (21:49)
[2018-09-09] MEDS: METOPROLOL SUCCINATE XR 100 MG TAB PO SCH (08:25)
[2018-09-09] MEDS: OMEGA-3 FATTY ACIDS 1,000 MG CAP PO SCH ×2 (08:26→21:27)
[2018-09-09] MEDS: MEMANTINE HCL 5 MG TAB PO SCH (08:26)
--- NOTE | 2018-09-09 20:04 | SOAPPROG ---
SOAP Progress Note Assessment/Plan: Assessment: This is a 78-year-old male presents with his family with a primary requests that he wants to be able to drive again. History was obtained from both the patient as well as his family members. Patient has been in [place] since June and was [facility] and diagnosed with an unspecified psychosis. Patient is currently taking Depakote. The son believes he may have bipolar disorder. Patient returned from [place] 2 weeks ago. He has had several run-ins with the police according to the son, has been sleeping only every other night, has been verbally abusive to his , has called an old girlfriend in offered to by her house, and has recently purchased a [employer] which is why he wants his [employer] driver's license back. WEEKEND PLAN: 09/08/18 18:56 1. Patient evaluated by neurologist, Dr. 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 Memantine has not been shown to be effective for tx of FTD , though it is often prescribed. As Dr. Lackey notes in his evaluation, there are some potential benefits from SSRIs and trazodone. Small clinical trials show limited benefit from SSRIs for mood-related sxs of bvFTD. Trazodone has also shown limited benefit for sleep and aberrant behaviors. Based on these recommendations, suggest trial of trazodone, since patient has consistently gotten < 4 hrs sleep each night in hospital (and often significantly less). 2. MD spoke at length with patient's and his son about medication options including starting SSRI versus trazodone. Both and son gave consent to initiate trial of trazodone first, and then decide whether to add an SSRI later. MD answered numerous questions family had about patient's diagnosis and condition. MD stated he agreed with Dr. 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 Son still wondered if patient could have bipolar or a different form of dementia, such as Alzheimer's. MD felt strongly that the most accurate diagnosis that fits the patient's presentation and hx of symptoms since 2014 is a frontotemporal dementia. Son said he would like to pursue getting a PET scan for reassurance. MD agreed this was reasonable, and family is following up with Dr. Lackey to get one. 3. Family is looking at placement options including assisted living and memory care facilities. They have several appointments this week to look at facilities in the area. They said they would update the CM when they have more information. 4. Hospitalist is following patient for HTN and other medical issues. Wound care has seen patient multiple times and dressed wounds on both hands. 09/09/18 20:01 1. Patient doesn't report any SE's from trazodone. Staff report patient seems calmer today. noticed slight tremor when patient was eating dinner. MD did not observe this during his interactions with patient. 2. Staff report patient was able to follow directions better today. 3. Still slept only 4 hrs last night. 4. Will continue trazodone at low dose and evaluate for response. May be titrated as appropriate. Subjective: Patient is less intrusive and hyperverbal today. He is standing calmly next to staff who is seated in holman area. He is trying to carry on conversation, but is tangential and disorganized. He does not appear too sedated after initiation of trazodone last night. He is not making inappropriate statements about wanting to take female peer home to be his which he did yesterday. Objective: Vital Signs Temp Pulse Resp BP Pulse Ox 36.6 C 87 16 111/78 97 09/09/18 07:37 09/09/18 07:37 09/09/18 07:37 09/09/18 07:37 09/09/18 07:37 Laboratory Results 09/05/18 05:45 09/05/18 05:45 MSE: Affect: Calmer Mood: No response TP: Disorganized, illogical TC: No SI/ HI, still delusional Insight/Judgment: Impaired - Time Spent With Patient Time Spent With Patient: 15" - Pending Discharge Pending Discharge Within 24 Hours: No Pending Discharge Within 48 Hours: No ICD10 Worksheet Patient Problems: Problems Problem Status Onset Psychosis Acute Frontotemporal dementia Chronic Hypertension Acute
[2018-09-09] MEDS: ASPIRIN 81 MG CHEWABLE TAB PO SCH (22:04)
[2018-09-09] MEDS: traZODone 50 MG TAB PO SCH (22:04)
[2018-09-09] MEDS: CHOLECALCIFEROL VIT D3 1,000 UNITS TAB PO SCH (22:04)
--- NOTE | 2018-09-10 06:56 | SOAPPROG ---
SOAP Progress Note Assessment/Plan: Assessment: Frontotemporal dementia. No improvement noted (see subjective/objective note). Patient exhibits persistent inability to perform essential function due to current condition. Patient is unable to communicate his basic needs appropriately and unable to attend independently and appropriately to ADLs. Patients support system has inability to manage functional impairment at lower level of care. Patient could benefit from continued inpatient hospitalization for crisis stabilization, safety, and medication evaluation. Plan: 1. Psychotropic medications: After reviewing options, risks, and benefits, patient agrees to continue current medications. No medication changes as more time is needed to determine ongoing tolerability and efficacy. Plan is to continue to observe patient for response and side effects from medications, and ongoing monitoring and evaluation. 2. Review with patient informed consent and recommendations for psychotropic medication treatment listed below 3. Labs: no additional at this time 4. Therapy: continue milieu and group therapy 5. Further investigation including gathering information from patients relatives and review of past case records to inform treatment plan. 6. Safety/Wellness plan and follow-up outpatient appointments to be established prior to discharge. Next steps are for patient to meet with care mgr to plan a safe discharge plan and establish outpatient services for ongoing treatment. 7. Confer with inpatient treatment team regarding treatment plan. 8. Psychosocial stressors addressed through supportive employment case manager. 9. Legal status: [facility] 10. Consider discharge this week if patient is in stable condition, safe, and has a safe discharge plan. PSYCHOTROPIC MEDICATION TREATMENT INFORMED CONSENT and RECOMMENDATIONS: Review nature of condition, diagnosis, and prognosis. Review nature and purpose of psychotropic medication treatment. Review type of psychotropic medications being ordered. Review risk and benefits of psychotropic medication treatment. Review probable length of time patient will need to take medications. Review risk and benefits of not undergoing psychotropic medication treatment. Review alternative treatments to psychotropic medications. Review psychotropic medications contraindications, drug-drug interactions, side effects, and importance of reporting any side effects to a psychiatric provider or nurse during inpatient hospitalization, and upon discharge to patients psychiatric outpatient provider, primary care provider, or other health care manager cna. Review importance of asking a nurse, psychiatric provider, or primary care provider any questions or problems concerning the psychotropic medications. Verify patient understands the information that has been provided, and understands, accepts, and agrees to psychotropic medications. Review patients safety plan and importance of patient to report to staff while hospitalized if patient is ever a danger to self/others, or unable to care for self, and upon discharge, the importance for patient to contact [facility] or [facility], or go to the nearest emergency room, if patient is ever a danger to self/others, or unable to care for self. Recommend that upon discharge patient establish medication management treatment with a psychiatric provider, establishes routine therapy appointments, and follow-up with primary care provider. Verify patient understands and agrees to these recommendations. 09/10/18 06:56 Subjective: Following up with patient for evaluation of mood and safety. Patient reports, "Hi. Is it going to rain outside? Need to get some work done." Objective: Vital Signs Temp Pulse Resp BP Pulse Ox 37.0 C 80 18 139/75 H 98 09/09/18 20:57 09/09/18 20:57 09/09/18 20:57 09/09/18 20:57 09/09/18 20:57 Laboratory Results 09/05/18 05:45 09/05/18 05:45 MSE: The patient is a well-nourished male looking stated chronological age. Attire is appropriate and dress is casual. Grooming status is appropriate. Ambulation is independent. Gait is normal and coordinated. Posture is normal and relaxed. Eye contact is appropriate. Motor activity is appropriate with purposeful, organized, coordinated movements; with no involuntary movements. Attitude is cooperative. Patient appears distracted and does not relate well to this interviewer. Language production is spontaneous. R/R/V normal. Articulation is clear. Patient reports mood as okay with congruent and appropriate affect. Patients thought process is disorganized, non-linear, illogical, and tangential. Patient denies suicidal thoughts, denies homicidal ideation. Patient denies auditory, visual hallucinations. Patient denies delusions. Patient does not appear to be attending to internal stimuli. Patients attention and concentration are poor. Patient is oriented to person, place. Patients insight and judgment are poor. - Time Spent With Patient Time Spent With Patient: 15 minutes, met with patient individually. - Pending Discharge Pending Discharge Within 24 Hours: No Pending Discharge Within 48 Hours: No ICD10 Worksheet Patient Problems: Problems Problem Status Onset Psychosis Acute Frontotemporal dementia Chronic Hypertension Acute
[2018-09-10] MEDS: METOPROLOL SUCCINATE XR 100 MG TAB PO SCH (09:00)
[2018-09-10] MEDS: OMEGA-3 FATTY ACIDS 1,000 MG CAP PO SCH ×2 (09:00→20:58)
[2018-09-10] MEDS: MEMANTINE HCL 5 MG TAB PO SCH (09:01)
--- NOTE | 2018-09-10 13:44 | ASMTBHFAM ---
Notes Note: Notes: Christine Connor visited [facility] and [facility]. She reported that [facility] had one shared room available but the facility was not cleanly or most suited to the patient's need. She was satisfied with [facility] although they do not currently have space available. [facility] is a private pay facility and the patient's insurance will not cover fci expenses. Christine will continue to work with [facility] to search for more possibilities. Date Signed: 09/10/2018 01:43 PM Electronically Signed By:Radha Tobias
[2018-09-10] MEDS: ASPIRIN 81 MG CHEWABLE TAB PO SCH (20:57)
[2018-09-10] MEDS: CHOLECALCIFEROL VIT D3 1,000 UNITS TAB PO SCH (20:57)
[2018-09-10] MEDS: traZODone 50 MG TAB PO SCH (20:59)
--- NOTE | 2018-09-11 06:18 | SOAPPROG ---
SOAP Progress Note Assessment/Plan: Assessment: Frontotemporal dementia. No improvement noted (see subjective/objective note). Patient exhibits persistent inability to perform essential function due to current condition. Patient is unable to communicate his basic needs appropriately and unable to attend independently and appropriately to ADLs. Patients support system has inability to manage functional impairment at lower level of care. Patient could benefit from continued inpatient hospitalization for crisis stabilization, safety, and medication evaluation. Plan: 1. Psychotropic medications: After reviewing options, risks, and benefits, patient agrees to continue current medications. No medication changes as more time is needed to determine ongoing tolerability and efficacy. Plan is to continue to observe patient for response and side effects from medications, and ongoing monitoring and evaluation. 2. Review with patient informed consent and recommendations for psychotropic medication treatment listed below 3. Labs: no additional at this time 4. Therapy: continue milieu and group therapy 5. Further investigation including gathering information from patients relatives and review of past case records to inform treatment plan. 6. Safety/Wellness plan and follow-up outpatient appointments to be established prior to discharge. Next steps are for patient to meet with technical healthcare consultant to plan a safe discharge plan and establish outpatient services for ongoing treatment. 7. Confer with inpatient treatment team regarding treatment plan. 8. Psychosocial stressors addressed through disease case manager. 9. Legal status: [facility] 10. Consider discharge this week if patient is in stable condition, safe, and has a safe discharge plan. PSYCHOTROPIC MEDICATION TREATMENT INFORMED CONSENT and RECOMMENDATIONS: Review nature of condition, diagnosis, and prognosis. Review nature and purpose of psychotropic medication treatment. Review type of psychotropic medications being ordered. Review risk and benefits of psychotropic medication treatment. Review probable length of time patient will need to take medications. Review risk and benefits of not undergoing psychotropic medication treatment. Review alternative treatments to psychotropic medications. Review psychotropic medications contraindications, drug-drug interactions, side effects, and importance of reporting any side effects to a psychiatric provider or nurse during inpatient hospitalization, and upon discharge to patients psychiatric outpatient provider, primary care provider, or other health managed care nurse. Review importance of asking a nurse, psychiatric provider, or primary care provider any questions or problems concerning the psychotropic medications. Verify patient understands the information that has been provided, and understands, accepts, and agrees to psychotropic medications. Review patients safety plan and importance of patient to report to staff while hospitalized if patient is ever a danger to self/others, or unable to care for self, and upon discharge, the importance for patient to contact [facility] or [facility], or go to the nearest emergency room, if patient is ever a danger to self/others, or unable to care for self. Recommend that upon discharge patient establish medication management treatment with a psychiatric provider, establishes routine therapy appointments, and follow-up with primary care provider. Verify patient understands and agrees to these recommendations. 09/11/18 06:17 Subjective: Following up with patient for evaluation of mood and safety. Patient reports, "Good morning. I'm doing okay." Objective: Vital Signs Temp Pulse Resp BP Pulse Ox 36.6 C 114 H 16 145/79 H 95 09/11/18 05:49 09/11/18 05:49 09/11/18 05:49 09/11/18 05:49 09/11/18 05:49 Laboratory Results 09/05/18 05:45 09/05/18 05:45 MSE: The patient is a well-nourished male looking stated chronological age. Attire is appropriate and dress is casual. Grooming status is appropriate. Ambulation is independent. Gait is normal and coordinated. Posture is normal and relaxed. Eye contact is appropriate. Motor activity is appropriate with purposeful, organized, coordinated movements; with no involuntary movements. Attitude is cooperative. Patient appears distracted and does not relate well to this interviewer. Language production is spontaneous. R/R/V normal. Articulation is clear. Patient reports mood as okay with congruent and appropriate affect, irritable and agitated. Patients thought process is disorganized, non-linear, illogical, and tangential. Patient denies suicidal thoughts, denies homicidal ideation. Patient denies auditory, visual hallucinations. Patient denies delusions. Patient does not appear to be attending to internal stimuli. Patients attention and concentration are poor. Patient is oriented to person, place. Patients insight and judgment are poor. - Time Spent With Patient Time Spent With Patient: 15 minutes, met with patient individually. - Pending Discharge Pending Discharge Within 24 Hours: No Pending Discharge Within 48 Hours: No ICD10 Worksheet Patient Problems: Problems Problem Status Onset Psychosis Acute Frontotemporal dementia Chronic Hypertension Acute
[2018-09-11] MEDS: OLANZapine DISINTEGR 5 MG TAB PO PRN (06:33)
[2018-09-11] MEDS: LORazepam 0.5 MG TAB PO PRN (06:33)
[2018-09-11] MEDS: OMEGA-3 FATTY ACIDS 1,000 MG CAP PO SCH ×2 (09:24→20:18)
[2018-09-11] MEDS: METOPROLOL SUCCINATE XR 100 MG TAB PO SCH (09:25)
[2018-09-11] MEDS: MEMANTINE HCL 5 MG TAB PO SCH (09:25)
--- NOTE | 2018-09-11 14:07 | ASMTCMCOM ---
CM Note CM Note Notes: The patient was moved to zone two following inappropriate behavior including hyper sexual statements towards peer patients (reporting he is "horny" during group, etc). The treatment team continues to review medication regimen. The patient reported "feeling well." He discussed his wound care. Christine Connor reported a possible plan to transfer the patient to [facility] for 30 days while she continues to search [facility]; referral sent. Date Signed: 09/11/2018 02:06 PM Electronically Signed By:Radha Tobias
[2018-09-11] MEDS: traZODone 50 MG TAB PO SCH (20:16)
[2018-09-11] MEDS: CHOLECALCIFEROL VIT D3 1,000 UNITS TAB PO SCH (20:17)
[2018-09-11] MEDS: ASPIRIN 81 MG CHEWABLE TAB PO SCH (20:20)
--- NOTE | 2018-09-12 07:40 | SOAPPROG ---
SOAP Progress Note Assessment/Plan: Assessment: Frontotemporal dementia. No improvement noted (see subjective/objective note). Patient exhibits persistent inability to perform essential function due to current condition. Patient is unable to communicate his basic needs appropriately and unable to attend independently and appropriately to ADLs. Patients support system has inability to manage functional impairment at lower level of care. Patient could benefit from continued inpatient hospitalization for crisis stabilization, safety, and medication evaluation. Plan: 1. Psychotropic medications: After reviewing options, risks, and benefits, patient agrees to continue current medications. No medication changes as more time is needed to determine ongoing tolerability and efficacy. Plan is to continue to observe patient for response and side effects from medications, and ongoing monitoring and evaluation. 2. Review with patient informed consent and recommendations for psychotropic medication treatment listed below 3. Labs: no additional at this time 4. Therapy: continue milieu and group therapy 5. Further investigation including gathering information from patients relatives and review of past case records to inform treatment plan. 6. Safety/Wellness plan and follow-up outpatient appointments to be established prior to discharge. Next steps are for patient to meet with senior caregiver to plan a safe discharge plan and establish outpatient services for ongoing treatment. 7. Confer with inpatient treatment team regarding treatment plan. 8. Psychosocial stressors addressed through case management assistant. 9. Legal status: [facility] 10. Consider discharge this week if patient is in stable condition, safe, and has a safe discharge plan. PSYCHOTROPIC MEDICATION TREATMENT INFORMED CONSENT and RECOMMENDATIONS: Review nature of condition, diagnosis, and prognosis. Review nature and purpose of psychotropic medication treatment. Review type of psychotropic medications being ordered. Review risk and benefits of psychotropic medication treatment. Review probable length of time patient will need to take medications. Review risk and benefits of not undergoing psychotropic medication treatment. Review alternative treatments to psychotropic medications. Review psychotropic medications contraindications, drug-drug interactions, side effects, and importance of reporting any side effects to a psychiatric provider or nurse during inpatient hospitalization, and upon discharge to patients psychiatric outpatient provider, primary care provider, or other health nurse healthcare manager. Review importance of asking a nurse, psychiatric provider, or primary care provider any questions or problems concerning the psychotropic medications. Verify patient understands the information that has been provided, and understands, accepts, and agrees to psychotropic medications. Review patients safety plan and importance of patient to report to staff while hospitalized if patient is ever a danger to self/others, or unable to care for self, and upon discharge, the importance for patient to contact [facility] or [facility], or go to the nearest emergency room, if patient is ever a danger to self/others, or unable to care for self. Recommend that upon discharge patient establish medication management treatment with a psychiatric provider, establishes routine therapy appointments, and follow-up with primary care provider. Verify patient understands and agrees to these recommendations. 09/12/18 07:40 Subjective: Following up with patient for evaluation of mood and safety. Patient reports, "Good morning. I am okay." Patient reports he slept well last night, and feels rested this morning. Objective: Vital Signs Temp Pulse Resp BP Pulse Ox 36.6 C 89 16 144/75 H 97 09/12/18 07:09 09/12/18 07:09 09/12/18 07:09 09/12/18 07:09 09/12/18 07:09 Laboratory Results 09/05/18 05:45 09/05/18 05:45 MSE: The patient is a well-nourished male looking stated chronological age. Attire is appropriate and dress is casual. Grooming status is appropriate. Ambulation is independent. Gait is normal and coordinated. Posture is normal and relaxed. Eye contact is appropriate. Motor activity is appropriate with purposeful, organized, coordinated movements; with no involuntary movements. Attitude is cooperative. Patient appears distracted and does not relate well to this interviewer. Language production is spontaneous. R/R/V normal. Articulation is clear. Patient reports mood as okay with congruent and appropriate affect, irritable and agitated. Patients thought process is disorganized, non-linear, illogical, and tangential. Patient denies suicidal thoughts, denies homicidal ideation. Patient denies auditory, visual hallucinations. Patient denies delusions. Patient does not appear to be attending to internal stimuli. Patients attention and concentration are poor. Patient is oriented to person, place. Patients insight and judgment are poor. - Time Spent With Patient Time Spent With Patient: 15 minutes, met with patient individually. - Pending Discharge Pending Discharge Within 24 Hours: No Pending Discharge Within 48 Hours: No ICD10 Worksheet Patient Problems: Problems Problem Status Onset Psychosis Acute Frontotemporal dementia Chronic Hypertension Acute
[2018-09-12] MEDS: OMEGA-3 FATTY ACIDS 1,000 MG CAP PO SCH ×2 (08:19→19:53)
[2018-09-12] MEDS: MEMANTINE HCL 5 MG TAB PO SCH (08:20)
[2018-09-12] MEDS: METOPROLOL SUCCINATE XR 100 MG TAB PO SCH (08:20)
--- NOTE | 2018-09-12 11:17 | ASMTCMCOM ---
CM Note CM Note Notes: The patient continues to present as hyper sexual including commenting about "taking a shower" with peer patients or "watching them shower." Additionally, he is inappropriately involving himself in peer patient's tx. He reported sleeping overnight with activities aide. This magnetic tape typewriter operator spoke with [facility], who are awaiting a decision from the family, before moving forward with an in person assessment and physician care plan. Date Signed: 09/12/2018 09:13 AM Electronically Signed By:Radha Tobias
[2018-09-12] MEDS: DIVALPROEX ER 250 MG TAB PO SCH (19:53)
[2018-09-12] MEDS: BENZONATATE 100 MG CAP PO PRN (19:53)
[2018-09-12] MEDS: CHOLECALCIFEROL VIT D3 1,000 UNITS TAB PO SCH (19:53)
[2018-09-12] MEDS: ASPIRIN 81 MG CHEWABLE TAB PO SCH (19:53)
[2018-09-12] MEDS: traZODone 50 MG TAB PO SCH (19:54)
[2018-09-12] MEDS ORDERED: DIVALPROEX ER 500 MG TAB PO SCH (21:00)
--- NOTE | 2018-09-13 05:37 | SOAPPROG ---
SOAP Progress Note Assessment/Plan: Assessment: Frontotemporal dementia. No improvement noted (see subjective/objective note). Patient exhibits persistent inability to perform essential function due to current condition. Patient is unable to communicate his basic needs appropriately and unable to attend independently and appropriately to ADLs. Patients support system has inability to manage functional impairment at lower level of care. Patient could benefit from continued inpatient hospitalization for crisis stabilization, safety, and medication evaluation. Plan: 1. Psychotropic medications: After reviewing options, risks, and benefits, patient agrees to continue current medications. No medication changes as more time is needed to determine ongoing tolerability and efficacy. Plan is to continue to observe patient for response and side effects from medications, and ongoing monitoring and evaluation. 2. Review with patient informed consent and recommendations for psychotropic medication treatment listed below 3. Labs: no additional at this time 4. Therapy: continue milieu and group therapy 5. Further investigation including gathering information from patients relatives and review of past case records to inform treatment plan. 6. Safety/Wellness plan and follow-up outpatient appointments to be established prior to discharge. Next steps are for patient to meet with home care chaplain to plan a safe discharge plan and establish outpatient services for ongoing treatment. 7. Confer with inpatient treatment team regarding treatment plan. 8. Psychosocial stressors addressed through housing case manager. 9. Legal status: [facility] 10. Consider discharge this week if patient is in stable condition, safe, and has a safe discharge plan. PSYCHOTROPIC MEDICATION TREATMENT INFORMED CONSENT and RECOMMENDATIONS: Review nature of condition, diagnosis, and prognosis. Review nature and purpose of psychotropic medication treatment. Review type of psychotropic medications being ordered. Review risk and benefits of psychotropic medication treatment. Review probable length of time patient will need to take medications. Review risk and benefits of not undergoing psychotropic medication treatment. Review alternative treatments to psychotropic medications. Review psychotropic medications contraindications, drug-drug interactions, side effects, and importance of reporting any side effects to a psychiatric provider or nurse during inpatient hospitalization, and upon discharge to patients psychiatric outpatient provider, primary care provider, or other health career development specialist. Review importance of asking a nurse, psychiatric provider, or primary care provider any questions or problems concerning the psychotropic medications. Verify patient understands the information that has been provided, and understands, accepts, and agrees to psychotropic medications. Review patients safety plan and importance of patient to report to staff while hospitalized if patient is ever a danger to self/others, or unable to care for self, and upon discharge, the importance for patient to contact [place] [facility] or [facility], or go to the nearest emergency room, if patient is ever a danger to self/others, or unable to care for self. Recommend that upon discharge patient establish medication management treatment with a psychiatric provider, establishes routine therapy appointments, and follow-up with primary care provider. Verify patient understands and agrees to these recommendations. 09/13/18 05:36 Subjective: Following up with patient for evaluation of mood and safety. Patient reports, "Good morning. Doing well this morning." Objective: Vital Signs Temp Pulse Resp BP Pulse Ox 35.6 C L 91 14 161/80 H 95 09/13/18 04:52 09/13/18 04:52 09/13/18 04:52 09/13/18 04:52 09/13/18 04:52 Laboratory Results 09/05/18 05:45 09/05/18 05:45 MSE: The patient is a well-nourished male looking stated chronological age. Attire is appropriate and dress is casual. Grooming status is appropriate. Ambulation is independent. Gait is normal and coordinated. Posture is normal and relaxed. Eye contact is appropriate. Motor activity is appropriate with purposeful, organized, coordinated movements; with no involuntary movements. Attitude is cooperative. Patient appears distracted and does not relate well to this interviewer. Language production is spontaneous. R/R/V normal. Articulation is clear. Patient reports mood as okay with congruent and appropriate affect, irritable and agitated. Patients thought process is disorganized, non-linear, illogical, and tangential. Patient denies suicidal thoughts, denies homicidal ideation. Patient denies auditory, visual hallucinations. Patient denies delusions. Patient does not appear to be attending to internal stimuli. Patients attention and concentration are poor. Patient is oriented to person, place. Patients insight and judgment are poor. - Time Spent With Patient Time Spent With Patient: 15 minutes, met with patient individually. - Pending Discharge Pending Discharge Within 24 Hours: No Pending Discharge Within 48 Hours: No ICD10 Worksheet Patient Problems: Problems Problem Status Onset Psychosis Acute Frontotemporal dementia Chronic Hypertension Acute
[2018-09-13] MEDS: METOPROLOL SUCCINATE XR 100 MG TAB PO SCH (08:45)
[2018-09-13] MEDS: OMEGA-3 FATTY ACIDS 1,000 MG CAP PO SCH ×2 (08:45→19:58)
[2018-09-13] MEDS: MEMANTINE HCL 5 MG TAB PO SCH (08:45)
--- NOTE | 2018-09-13 12:55 | ASMTCMCOM ---
CM Note CM Note Notes: The patient participated in clinical treatment team rounds; he was engaged and appropriate. The patient discussed his wound care and milieu experience. He stated, "It could be better, it could be worse." The patient described his mind as "taking a little hike at times and then wandering back." The patient is spending meals and groups in Zone I and sleeping in Zone II. Christine Connor completed 13 releases of information for possible placement and requested referrals be sent. The patient was denied at [facility] and [facility] due to bhx and elopement concerns. This flex o writer operator left a voice mail with the transitional specialist program to determine whether the patient meets criteria for their services. Date Signed: 09/13/2018 12:53 PM Electronically Signed By:Radha Tobias
--- NOTE | 2018-09-13 13:57 | HOSPPROG ---
Hospitalist Progress Note Assessment/Plan: S: reports "swelling of fingers" once a year and can be very painful. Right 5th finger swollen last couple days. No fever, chills sweats A&P: 1. Right fifth finger swelling -DDx: OA, gout, septic joint -does not appear infected, no fever -trial NSAIDs BID. Monitor Cr Subjective: right pinky swelling Objective: Vital Signs Temp Pulse Resp BP Pulse Ox 35.6 C L 91 14 161/80 H 95 09/13/18 04:52 09/13/18 04:52 09/13/18 04:52 09/13/18 04:52 09/13/18 04:52 Laboratory Results 09/05/18 05:45 09/05/18 05:45 - Physical Exam Constitutional: no apparent distress Eyes: PERRL Ears, Nose, Mouth, Throat: moist mucous membranes Respiratory: no respiratory distress Musculoskeletal: other (right 5th PIP joint with mild erythema, aimee TTP, FROM) ICD10 Worksheet Patient Problems: Problems Problem Status Onset Psychosis Acute Frontotemporal dementia Chronic Hypertension Acute
--- NOTE | 2018-09-13 16:06 | WOCRNPDOC ---
WOCRN Advanced Assessment Note - Skin Integrity Problem, Advanced Assess Left First Finger Dressing Type: Open to Air Closure Description: Approximated Exudate Amount: None Bre Wound Tissue: Calloused Wound Bed Color: Gerster Wound Bed Constitution: Granulation Tissue Skin Integrity Problem Comment: Distal callous on this finger removed by patient earlier in the day leaving fresh, new pink healthy skin beneath. Proximal callous lifting up and much softer than in previously documented encounters. This RN was able to remove the remaining callous. Leaving open to air. Encouraged patient to continue to moisturize with lotion. Wound care will continue to follow, rounding again next week. Left Third Finger Dressing Type: Hydrofera Blue Ready, Tegaderm Film Dressing Description: Clean/Dry, Intact Closure Description: Not Approximated Exudate Amount: None Integumentary Issue Intervention: Dressing Changed, Silver Gel Applied Bre Wound Tissue: Macerated, Calloused Wound Edges: Attached, Well Defined Right First Finger Dressing Type: Open to Air Exudate Amount: None Integumentary Issue Intervention: Dressing Applied, Silver Gel Applied Bre Wound Tissue: Calloused, Painful/Tender
[2018-09-13] MEDS: IBUPROFEN 200 MG TAB PO SCH (16:12)
[2018-09-13] MEDS: amLODIPine BESYLATE 5 MG TAB PO SCH (16:12)
[2018-09-13] MEDS: ASPIRIN 81 MG CHEWABLE TAB PO SCH (19:59)
[2018-09-13] MEDS: LORazepam 0.5 MG TAB PO PRN (19:59)
[2018-09-13] MEDS: traZODone 50 MG TAB PO SCH (19:59)
[2018-09-13] MEDS: DIVALPROEX ER 250 MG TAB PO SCH (19:59)
[2018-09-13] MEDS: CHOLECALCIFEROL VIT D3 1,000 UNITS TAB PO SCH (19:59)
[2018-09-13] MEDS: BENZONATATE 100 MG CAP PO PRN (19:59)
[2018-09-14] MEDS: IBUPROFEN 200 MG TAB PO SCH ×5 (04:35→23:58)
--- NOTE | 2018-09-14 05:32 | SOAPPROG ---
SOAP Progress Note Assessment/Plan: Assessment: Frontotemporal dementia. No improvement noted (see subjective/objective note). Patient exhibits persistent inability to perform essential function due to current condition. Patient is unable to communicate his basic needs appropriately and unable to attend independently and appropriately to ADLs. Patients support system has inability to manage functional impairment at lower level of care. Patient could benefit from continued inpatient hospitalization for crisis stabilization, safety, and medication evaluation. Plan: 1. Psychotropic medications: After reviewing options, risks, and benefits, patient agrees to continue current medications. No medication changes as more time is needed to determine ongoing tolerability and efficacy. Plan is to continue to observe patient for response and side effects from medications, and ongoing monitoring and evaluation. 2. Review with patient informed consent and recommendations for psychotropic medication treatment listed below 3. Labs: no additional at this time 4. Therapy: continue milieu and group therapy 5. Further investigation including gathering information from patients relatives and review of past case records to inform treatment plan. 6. Safety/Wellness plan and follow-up outpatient appointments to be established prior to discharge. Next steps are for patient to meet with care assistant to plan a safe discharge plan and establish outpatient services for ongoing treatment. 7. Confer with inpatient treatment team regarding treatment plan. 8. Psychosocial stressors addressed through case sealer. 9. Legal status: [facility] 10. Consider discharge this week if patient is in stable condition, safe, and has a safe discharge plan. PSYCHOTROPIC MEDICATION TREATMENT INFORMED CONSENT and RECOMMENDATIONS: Review nature of condition, diagnosis, and prognosis. Review nature and purpose of psychotropic medication treatment. Review type of psychotropic medications being ordered. Review risk and benefits of psychotropic medication treatment. Review probable length of time patient will need to take medications. Review risk and benefits of not undergoing psychotropic medication treatment. Review alternative treatments to psychotropic medications. Review psychotropic medications contraindications, drug-drug interactions, side effects, and importance of reporting any side effects to a psychiatric provider or nurse during inpatient hospitalization, and upon discharge to patients psychiatric outpatient provider, primary care provider, or other health point of care technician. Review importance of asking a nurse, psychiatric provider, or primary care provider any questions or problems concerning the psychotropic medications. Verify patient understands the information that has been provided, and understands, accepts, and agrees to psychotropic medications. Review patients safety plan and importance of patient to report to staff while hospitalized if patient is ever a danger to self/others, or unable to care for self, and upon discharge, the importance for patient to contact [facility] or [facility], or go to the nearest emergency room, if patient is ever a danger to self/others, or unable to care for self. Recommend that upon discharge patient establish medication management treatment with a psychiatric provider, establishes routine therapy appointments, and follow-up with primary care provider. Verify patient understands and agrees to these recommendations. 09/14/18 05:31 Subjective: Following up with patient for evaluation of mood and safety. Patient reports, "Good morning. How about some coffee? Playing baseball this morning. I bet he 's never played baseball. He's assisted decent, you're decent." With regard to sleep, "Didn't sleep too good last night. Could have been better. It's not the sleep's fault, its my head." Objective: Vital Signs Temp Pulse Resp BP Pulse Ox 35.6 C L 80 14 155/68 H 95 09/13/18 04:52 09/13/18 16:00 09/13/18 16:00 09/13/18 16:00 09/13/18 16:00 Laboratory Results 09/05/18 05:45 09/05/18 05:45 MSE: The patient is a well-nourished male looking stated chronological age. Attire is appropriate and dress is casual. Grooming status is appropriate. Ambulation is independent. Gait is normal and coordinated. Posture is normal and relaxed. Eye contact is appropriate. Motor activity is appropriate with purposeful, organized, coordinated movements; with no involuntary movements. Attitude is cooperative. Patient appears distracted and does not relate well to this interviewer. Language production is spontaneous. R/R/V normal. Articulation is clear. Patient reports mood as okay with congruent and appropriate affect, irritable and agitated. Patients thought process is disorganized, non-linear, illogical, and tangential. Patient denies suicidal thoughts, denies homicidal ideation. Patient denies auditory, visual hallucinations. Patient denies delusions. Patient does not appear to be attending to internal stimuli. Patients attention and concentration are poor. Patient is oriented to person, place. Patients insight and judgment are poor. - Time Spent With Patient Time Spent With Patient: 15 minutes, met with patient individually. - Pending Discharge Pending Discharge Within 24 Hours: No Pending Discharge Within 48 Hours: No ICD10 Worksheet Patient Problems: Problems Problem Status Onset Psychosis Acute Frontotemporal dementia Chronic Hypertension Acute
[2018-09-14] MEDS: amLODIPine BESYLATE 5 MG TAB PO SCH (08:15)
[2018-09-14] MEDS: METOPROLOL SUCCINATE XR 100 MG TAB PO SCH (08:15)
[2018-09-14] MEDS: MEMANTINE HCL 5 MG TAB PO SCH (08:15)
[2018-09-14] MEDS: OMEGA-3 FATTY ACIDS 1,000 MG CAP PO SCH ×2 (12:00→21:27)
--- NOTE | 2018-09-14 15:25 | ASMTBHDC ---
Notes Note: Notes: CC received a message from [facility], stating they are interested in the patient, but need to review pt's clinicals with their team. [facility] stated they have spoken with Melba ([facility]) and it is possible they would be able to evaluate the patient as early as Monday09/15/18. RN notified. Emy stated they have mostly male residents. Date Signed: 09/14/2018 03:24 PM Electronically Signed By:Nikole Clayton
[2018-09-14] MEDS: traZODone 50 MG TAB PO SCH (21:28)
[2018-09-14] MEDS: DIVALPROEX ER 250 MG TAB PO SCH (21:29)
[2018-09-14] MEDS: ASPIRIN 81 MG CHEWABLE TAB PO SCH (21:29)
[2018-09-14] MEDS: CHOLECALCIFEROL VIT D3 1,000 UNITS TAB PO SCH (21:29)
[2018-09-15] MEDS: OLANZapine DISINTEGR 5 MG TAB PO PRN (00:03)
[2018-09-15] MEDS: IBUPROFEN 200 MG TAB PO SCH (05:50)
[2018-09-15] MEDS ORDERED: IBUPROFEN 200 MG TAB PO PRN (06:29)
[2018-09-15] MEDS: OMEGA-3 FATTY ACIDS 1,000 MG CAP PO SCH ×2 (08:59→21:03)
[2018-09-15] MEDS: MEMANTINE HCL 5 MG TAB PO SCH (08:59)
[2018-09-15] MEDS: METOPROLOL SUCCINATE XR 100 MG TAB PO SCH (09:00)
[2018-09-15] MEDS: amLODIPine BESYLATE 5 MG TAB PO SCH (09:00)
--- NOTE | 2018-09-15 20:35 | SOAPPROG ---
SOAP Progress Note Assessment/Plan: Assessment: This is a 78-year-old male presents with his family with a primary requests that he wants to be able to drive again. History was obtained from both the patient as well as his family members. Patient has been in [place] since June and was [facility] and diagnosed with an unspecified psychosis. Patient is currently taking Depakote. The son believes he may have bipolar disorder. Patient returned from [place] 2 weeks ago. 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 WEEKEND PLAN: 09/15/18 20:29 1. PMHNP, Ricky Casey, started patient on VPA this week. So far patient is tolerating medication, but it doesn't appear to be helping with any sxs. There is no evidence that VPA is effective for treating aberrant behaviors associated with bvFTD. There is some evidence from small scale trials of benefit from SSRIs and trazodone for treating the aberrant bxs. Dr. Lackey and this MD have both recommended this to patient's family. They consented last weekend to trial of trazodone, which has been partly successful. Patient is getting more regular sleep over the past week, but inappropriate behaviors continue. 2. Family looking for placement at memory care facility. 3. STC Subjective: Patient slept 7 hrs last night. He has been getting more regular sleep, but continues to demonstrate significant disinhibition and inappropriate behavior, particularly hypersexual behavior around female peers. Objective: Vital Signs Temp Pulse Resp BP Pulse Ox 35.6 C L 81 18 145/79 H 95 09/13/18 04:52 09/15/18 17:21 09/15/18 17:21 09/15/18 17:21 09/15/18 17:21 Laboratory Results 09/05/18 05:45 09/14/18 06:00 MSE: Affect: Labile Mood: "OK" TP: Disorganized, illogical TC: No SI/HI, no delusions Insight/Judgment: Impaired - Time Spent With Patient Time Spent With Patient: 15" - Pending Discharge Pending Discharge Within 24 Hours: No Pending Discharge Within 48 Hours: No ICD10 Worksheet Patient Problems: Problems Problem Status Onset Psychosis Acute Frontotemporal dementia Chronic Hypertension Acute
[2018-09-15] MEDS: ASPIRIN 81 MG CHEWABLE TAB PO SCH (21:04)
[2018-09-15] MEDS: CHOLECALCIFEROL VIT D3 1,000 UNITS TAB PO SCH (21:04)
[2018-09-15] MEDS: DIVALPROEX ER 250 MG TAB PO SCH (21:04)
[2018-09-15] MEDS: traZODone 50 MG TAB PO SCH (21:07)
[2018-09-16] MEDS: METOPROLOL SUCCINATE XR 100 MG TAB PO SCH (08:25)
[2018-09-16] MEDS: amLODIPine BESYLATE 5 MG TAB PO SCH (08:25)
[2018-09-16] MEDS: OMEGA-3 FATTY ACIDS 1,000 MG CAP PO SCH ×2 (08:25→20:39)
[2018-09-16] MEDS: MEMANTINE HCL 5 MG TAB PO SCH (08:26)
--- NOTE | 2018-09-16 20:18 | SOAPPROG ---
SOAP Progress Note Assessment/Plan: Assessment: This is a 78-year-old male presents with his family with a primary requests that he wants to be able to drive again. History was obtained from both the patient as well as his family members. Patient has been in [place] since June and was [facility] the [facility] and diagnosed with an unspecified psychosis. Patient is currently taking Depakote. The son believes he may have bipolar disorder. Patient returned from [place] 2 weeks ago. 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 WEEKEND PLAN: 09/15/18 20:29 1. PMHNP, Ricky Casey, started patient on VPA this week. So far patient is tolerating medication, but it doesn't appear to be helping with any sxs. There is no evidence that VPA is effective for treating aberrant behaviors associated with bvFTD. There is some evidence from small scale trials of benefit from SSRIs and trazodone for treating the aberrant bxs. Dr. Lackey and this MD have both recommended this to patient's family. They consented last weekend to trial of trazodone, which has been partly successful. Patient is getting more regular sleep over the past week, but inappropriate behaviors continue. 2. Family looking for placement at memory care facility. 3. STC 09/16/18 20:17 1. Patient exhibiting more inappropriate sexual behaviors today due to presence of new female admissions to unit. 2. See med recommendations from notes on 09/08/18 and 09/15/18. 3. STC Subjective: Patient more labile today. He has been more sexually inappropriate with female peers. He also got angry with staff and threatened to get a shipfitter helper and [facility]. Objective: Vital Signs Temp Pulse Resp BP Pulse Ox 36.9 C 82 16 139/85 H 96 09/16/18 04:34 09/16/18 15:57 09/16/18 15:57 09/16/18 15:57 09/16/18 15:57 Laboratory Results 09/05/18 05:45 09/14/18 06:00 MSE: Affect: Labile, angry at times Mood: "OK" TP: Disorganized TC: No SI/HI , still delusional, hypersexual Insight/Judgment: Impaired - Time Spent With Patient Time Spent With Patient: 15" - Pending Discharge Pending Discharge Within 24 Hours: No Pending Discharge Within 48 Hours: No ICD10 Worksheet Patient Problems: Problems Problem Status Onset Psychosis Acute Frontotemporal dementia Chronic Hypertension Acute
[2018-09-16] MEDS: CHOLECALCIFEROL VIT D3 1,000 UNITS TAB PO SCH (20:39)
[2018-09-16] MEDS: DIVALPROEX ER 250 MG TAB PO SCH (20:39)
[2018-09-16] MEDS: ASPIRIN 81 MG CHEWABLE TAB PO SCH (20:39)
[2018-09-16] MEDS: traZODone 50 MG TAB PO SCH (20:39)
--- NOTE | 2018-09-17 07:33 | SOAPPROG ---
SOAP Progress Note Assessment/Plan: Assessment: Frontotemporal dementia. No improvement noted (see subjective/objective note). Patient exhibits persistent inability to perform essential function due to current condition. Patient is unable to communicate his basic needs appropriately and unable to attend independently and appropriately to ADLs. Patients support system has inability to manage functional impairment at lower level of care. Patient could benefit from continued inpatient hospitalization for crisis stabilization, safety, and medication evaluation. Plan: 1. Psychotropic medications: After reviewing options, risks, and benefits, patient agrees to continue current medications. No medication changes as more time is needed to determine ongoing tolerability and efficacy. Plan is to continue to observe patient for response and side effects from medications, and ongoing monitoring and evaluation. 2. Review with patient informed consent and recommendations for psychotropic medication treatment listed below 3. Labs: VPA level this AM 4. Therapy: continue milieu and group therapy 5. Further investigation including gathering information from patients relatives and review of past case records to inform treatment plan. 6. Safety/Wellness plan and follow-up outpatient appointments to be established prior to discharge. Next steps are for patient to meet with home day care provider to plan a safe discharge plan and establish outpatient services for ongoing treatment. 7. Confer with inpatient treatment team regarding treatment plan. 8. Psychosocial stressors addressed through patient case manager. 9. Legal status: [facility] 10. Consider discharge this week if patient is in stable condition, safe, and has a safe discharge plan. PSYCHOTROPIC MEDICATION TREATMENT INFORMED CONSENT and RECOMMENDATIONS: Review nature of condition, diagnosis, and prognosis. Review nature and purpose of psychotropic medication treatment. Review type of psychotropic medications being ordered. Review risk and benefits of psychotropic medication treatment. Review probable length of time patient will need to take medications. Review risk and benefits of not undergoing psychotropic medication treatment. Review alternative treatments to psychotropic medications. Review psychotropic medications contraindications, drug-drug interactions, side effects, and importance of reporting any side effects to a psychiatric provider or nurse during inpatient hospitalization, and upon discharge to patients psychiatric outpatient provider, primary care provider, or other health foster care case manager. Review importance of asking a nurse, psychiatric provider, or primary care provider any questions or problems concerning the psychotropic medications. Verify patient understands the information that has been provided, and understands, accepts, and agrees to psychotropic medications. Review patients safety plan and importance of patient to report to staff while hospitalized if patient is ever a danger to self/others, or unable to care for self, and upon discharge, the importance for patient to contact [facility] or [facility], or go to the nearest emergency room, if patient is ever a danger to self/others, or unable to care for self. Recommend that upon discharge patient establish medication management treatment with a psychiatric provider, establishes routine therapy appointments, and follow-up with primary care provider. Verify patient understands and agrees to these recommendations. 09/17/18 07:32 Subjective: Following up with patient for evaluation of mood and safety. Patient reports, "Good morning. Doing well. We're about to start our own goals group." Patient reports no side effects from current medications, and agrees to continue. Patient agrees to VPA level this AM. Objective: Vital Signs Temp Pulse Resp BP Pulse Ox 36.4 C 81 14 134/73 H 96 09/17/18 06:00 09/17/18 06:00 09/17/18 06:00 09/17/18 06:00 09/17/18 06:00 Laboratory Results 09/05/18 05:45 09/14/18 06:00 MSE: The patient is a well-nourished male looking stated chronological age. Attire is appropriate and dress is casual. Grooming status is appropriate. Ambulation is independent. Gait is normal and coordinated. Posture is normal and relaxed. Eye contact is appropriate. Motor activity is appropriate with purposeful, organized, coordinated movements; with no involuntary movements. Attitude is cooperative. Patient appears distracted and does not relate well to this interviewer. Language production is spontaneous. R/R/V normal. Articulation is clear. Patient reports mood as okay with congruent and appropriate affect, irritable and agitated. Patients thought process is disorganized, non-linear, illogical, and tangential. Patient denies suicidal thoughts, denies homicidal ideation. Patient denies auditory, visual hallucinations. Patient denies delusions. Patient does not appear to be attending to internal stimuli. Patients attention and concentration are poor. Patient is oriented to person, place. Patients insight and judgment are poor. - Time Spent With Patient Time Spent With Patient: 15 minutes, met with patient individually. - Pending Discharge Pending Discharge Within 24 Hours: No Pending Discharge Within 48 Hours: No ICD10 Worksheet Patient Problems: Problems Problem Status Onset Psychosis Acute Frontotemporal dementia Chronic Hypertension Acute
[2018-09-17] MEDS: METOPROLOL SUCCINATE XR 100 MG TAB PO SCH (09:07)
[2018-09-17] MEDS: amLODIPine BESYLATE 5 MG TAB PO SCH (09:07)
[2018-09-17] MEDS: MEMANTINE HCL 5 MG TAB PO SCH (09:07)
[2018-09-17] MEDS: OMEGA-3 FATTY ACIDS 1,000 MG CAP PO SCH ×2 (09:08→21:45)
--- NOTE | 2018-09-17 13:27 | ASMTBHDC ---
Notes Note: Notes: was accepted to [facility] term care facility. Facility will fax paperwork tomorrow morning. They are ready to take Darian on . personal care assistant is Lopez Geronimo at [phone]. CC had a long talk with sruthi.'s son who is concerned about continuity of care and whether FOC has Bipolar or not. Discussed with SOC that the local company intermodal truck driver facility will be able to better address dementia issues and can refer him to providers in the community if need be. Date Signed: 09/17/2018 01:16 PM Electronically Signed By:Bhargavi Arauz
[2018-09-17] MEDS: CHOLECALCIFEROL VIT D3 1,000 UNITS TAB PO SCH (21:45)
[2018-09-17] MEDS: traZODone 50 MG TAB PO SCH (21:45)
[2018-09-17] MEDS: DIVALPROEX ER 250 MG TAB PO SCH (21:46)
[2018-09-17] MEDS: ASPIRIN 81 MG CHEWABLE TAB PO SCH (21:46)
[2018-09-18] MEDS: LORazepam 0.5 MG TAB PO PRN (04:51)
[2018-09-18] MEDS: GUAIFENESIN/DM 10 ML UDCUP PO PRN ×3 (05:08→19:27)
[2018-09-18] MEDS: OLANZapine DISINTEGR 5 MG TAB PO PRN (05:54)
[2018-09-18] MEDS: MEMANTINE HCL 5 MG TAB PO SCH (08:23)
[2018-09-18] MEDS: BENZONATATE 100 MG CAP PO PRN (08:23)
[2018-09-18] MEDS: METOPROLOL SUCCINATE XR 100 MG TAB PO SCH (08:23)
[2018-09-18] MEDS: amLODIPine BESYLATE 5 MG TAB PO SCH (08:23)
[2018-09-18] MEDS: OMEGA-3 FATTY ACIDS 1,000 MG CAP PO SCH ×2 (08:25→21:04)
[2018-09-18] MEDS ORDERED: DIVALPROEX ER 250 MG TAB PO SCH (10:45)
--- NOTE | 2018-09-18 12:41 | ASMTCMCOM ---
CM Note CM Note Notes: CC spoke with Melsisa Walls. Melissa Walls informed that they will not be able to accept pt until Monday, September 24. They will reach out to pt's and try to arrange a family meeting for this . This information was given to pt and his . His has concerns as her son is leaving, for 4 weeks, this coming Monday and she was relying on his help in getting her 's furniture to the care center. She is contacting the care center to see if there is any possiblity of their moving the furniture in sooner. Date Signed: 09/18/2018 12:41 PM Electronically Signed By:Radha Hawthorne
--- NOTE | 2018-09-18 16:29 | SOAPPROG ---
SOAP Progress Note Assessment/Plan: Assessment: Plan: 09/18/18 16:28 Dementia/roland: Improving, though remains debilitating. Will increase VPA to 1250mg, monitor. Possible d/c to [facility]. Subjective: Pt seen, discussed with staff, chart reviewed. He slept four hours last night. Remains intermittently agitated with continued intrusive and inappropriate behaviors, especially towards females. Tolerating VPA well with no SE's. CC informs me that [facility] can take patient on 09/24/18. MSE: Moderately agitated, interactive. Remembers who I am. Affect is bright, full. Mood is "good." TP is disorganized. TC reveals less prominent grandiosity. A&Ox2. Objective: Vital Signs Temp Pulse Resp BP Pulse Ox 36.6 C 94 16 127/74 H 94 09/18/18 06:00 09/18/18 06:00 09/18/18 06:00 09/18/18 06:00 09/18/18 06:00 Laboratory Results 09/05/18 05:45 09/14/18 06:00 ICD10 Worksheet Patient Problems: Problems Problem Status Onset Psychosis Acute Frontotemporal dementia Chronic Hypertension Acute
[2018-09-18] MEDS: DIVALPROEX ER 250 MG TAB PO SCH (21:04)
[2018-09-18] MEDS: CHOLECALCIFEROL VIT D3 1,000 UNITS TAB PO SCH (21:05)
[2018-09-18] MEDS: ASPIRIN 81 MG CHEWABLE TAB PO SCH (21:05)
[2018-09-18] MEDS: traZODone 50 MG TAB PO SCH (21:05)
[2018-09-19] MEDS: METOPROLOL SUCCINATE XR 100 MG TAB PO SCH (08:27)
[2018-09-19] MEDS: amLODIPine BESYLATE 5 MG TAB PO SCH (08:27)
[2018-09-19] MEDS: MEMANTINE HCL 5 MG TAB PO SCH (08:27)
[2018-09-19] MEDS: OMEGA-3 FATTY ACIDS 1,000 MG CAP PO SCH ×2 (08:27→21:53)
--- NOTE | 2018-09-19 13:42 | SOAPPROG ---
SOAP Progress Note Assessment/Plan: Assessment: Frontotemporal dementia. No improvement noted (see subjective/objective note). Patient exhibits persistent inability to perform essential function due to current condition. Patient is unable to communicate his basic needs appropriately and unable to attend independently and appropriately to ADLs. Patients support system has inability to manage functional impairment at lower level of care. Patient could benefit from continued inpatient hospitalization for crisis stabilization, safety, and medication evaluation. Plan: 1. Psychotropic medications: After reviewing options, risks, and benefits, patient agrees to continue current medications. No medication changes as more time is needed to determine ongoing tolerability and efficacy. Plan is to continue to observe patient for response and side effects from medications, and ongoing monitoring and evaluation. 2. Review with patient informed consent and recommendations for psychotropic medication treatment listed below 3. Labs: VPA level this AM 4. Therapy: continue milieu and group therapy 5. Further investigation including gathering information from patients relatives and review of past case records to inform treatment plan. 6. Safety/Wellness plan and follow-up outpatient appointments to be established prior to discharge. Next steps are for patient to meet with health care facility administrator to plan a safe discharge plan and establish outpatient services for ongoing treatment. 7. Confer with inpatient treatment team regarding treatment plan. 8. Psychosocial stressors addressed through hospice case manager. 9. Legal status: [facility] 10. Consider discharge this week if patient is in stable condition, safe, and has a safe discharge plan. PSYCHOTROPIC MEDICATION TREATMENT INFORMED CONSENT and RECOMMENDATIONS: Review nature of condition, diagnosis, and prognosis. Review nature and purpose of psychotropic medication treatment. Review type of psychotropic medications being ordered. Review risk and benefits of psychotropic medication treatment. Review probable length of time patient will need to take medications. Review risk and benefits of not undergoing psychotropic medication treatment. Review alternative treatments to psychotropic medications. Review psychotropic medications contraindications, drug-drug interactions, side effects, and importance of reporting any side effects to a psychiatric provider or nurse during inpatient hospitalization, and upon discharge to patients psychiatric outpatient provider, primary care provider, or other health vp care management. Review importance of asking a nurse, psychiatric provider, or primary care provider any questions or problems concerning the psychotropic medications. Verify patient understands the information that has been provided, and understands, accepts, and agrees to psychotropic medications. Review patients safety plan and importance of patient to report to staff while hospitalized if patient is ever a danger to self/others, or unable to care for self, and upon discharge, the importance for patient to contact [facility] or [facility], or go to the nearest emergency room, if patient is ever a danger to self/others, or unable to care for self. Recommend that upon discharge patient establish medication management treatment with a psychiatric provider, establishes routine therapy appointments, and follow-up with primary care provider. Verify patient understands and agrees to these recommendations. 09/17/18 07:32 Subjective: Following up with patient for evaluation of mood and safety. Patient reports, "Going good today." Patient reports no side effects from current medications, and agrees to continue. Objective: Vital Signs Temp Pulse Resp BP Pulse Ox 36.6 C 85 14 127/68 H 93 09/19/18 00:00 09/19/18 00:00 09/19/18 00:00 09/19/18 00:00 09/19/18 00:00 Laboratory Results 09/05/18 05:45 09/14/18 06:00 MSE: The patient is a well-nourished male looking stated chronological age. Attire is appropriate and dress is casual. Grooming status is appropriate. Ambulation is independent. Gait is normal and coordinated. Posture is normal and relaxed. Eye contact is appropriate. Motor activity is appropriate with purposeful, organized, coordinated movements; with no involuntary movements. Attitude is cooperative. Patient appears distracted and does not relate well to this interviewer. Language production is spontaneous. R/R/V normal. Articulation is clear. Patient reports mood as okay with congruent and appropriate affect, irritable and agitated. Patients thought process is disorganized, non-linear, illogical, and tangential. Patient denies suicidal thoughts, denies homicidal ideation. Patient denies auditory, visual hallucinations. Patient denies delusions. Patient does not appear to be attending to internal stimuli. Patients attention and concentration are poor. Patient is oriented to person, place. Patients insight and judgment are poor. - Time Spent With Patient Time Spent With Patient: 15 minutes, met with patient individually. - Pending Discharge Pending Discharge Within 24 Hours: No Pending Discharge Within 48 Hours: No ICD10 Worksheet Patient Problems: Problems Problem Status Onset Psychosis Acute Frontotemporal dementia Chronic Hypertension Acute
[2018-09-19] MEDS: GUAIFENESIN/DM 10 ML UDCUP PO PRN (14:59)
[2018-09-19] MEDS: CHOLECALCIFEROL VIT D3 1,000 UNITS TAB PO SCH (21:53)
[2018-09-19] MEDS: ASPIRIN 81 MG CHEWABLE TAB PO SCH (21:53)
[2018-09-19] MEDS: DIVALPROEX ER 250 MG TAB PO SCH (21:53)
[2018-09-19] MEDS: traZODone 50 MG TAB PO SCH (21:54)
[2018-09-20] MEDS: LORazepam 0.5 MG TAB PO PRN (00:46)
[2018-09-20] MEDS: amLODIPine BESYLATE 5 MG TAB PO SCH (07:42)
[2018-09-20] MEDS: METOPROLOL SUCCINATE XR 100 MG TAB PO SCH (07:42)
[2018-09-20] MEDS: MEMANTINE HCL 5 MG TAB PO SCH (07:42)
[2018-09-20] MEDS ORDERED: TUBERCULIN (PPD) 5 TU/0.1 ML SYRINGE ID ONE (14:07)
[2018-09-20] MEDS: OMEGA-3 FATTY ACIDS 1,000 MG CAP PO SCH ×2 (14:43→21:42)
--- NOTE | 2018-09-20 14:48 | WOCRNPDOC ---
WOCRN Advanced Assessment Note - Skin Integrity Problem, Advanced Assess Left First Finger Dressing Type: Open to Air Bre Wound Tissue: Calloused Skin Integrity Problem Comment: Fissure Generalized Hand Dressing Type: Open to Air Bre Wound Tissue: Crusted, Calloused Skin Integrity Problem Comment: Hand fissures healed with some callouses remaining. Mechanically debrided loose callouses revealing healthy tissue. No signs of infection, no open areas remaining. Encouraged patient to continue applying lotion at least twice daily and gently removing any loose tissue. Wound care will sign off.
--- NOTE | 2018-09-20 14:55 | ASMTBHDC ---
Notes Note: Notes: complete requested paperwork from [facility], CC faxed completed forms to [facility]. Pt. to have a TB skin test, and once completed, CC to fax TB information to [facility]. CC spoke with Lopez from [facility], who stated pt. can bring the complete TB form with him on Monday. Lopez stated if he needs any information he will contact [facility]. Pt. to discharge on Monday to [facility]. CC provided WOC with brochures and fliers from [facility]. A Bond Broker for Medicaid wardrobe assistant care met with pt. and WOC, they declined wanting long-term medicaid currently, Bond Broker left her card for future reference. Staff report pt. sleeping 5 hours and being medication compliant. Date Signed: 09/20/2018 02:53 PM Electronically Signed By:Nikole Clayton
--- NOTE | 2018-09-20 17:46 | SOAPPROG ---
SOAP Progress Note Assessment/Plan: Assessment: Plan: 09/18/18 16:28 Dementia/roland: Improving, though remains debilitating. Will increase VPA to 1250mg, monitor. Possible d/c to [facility]. 09/20/18 17:45 Dementia/roland: No change. Tolerating meds well. Overall much calmer with VPA. CCM. Subjective: Pt seen, discussed with staff, chart reviewed. He was upset this morning after agitated female patient made him cry by being mean to him. visited later and I talked to her as well. She brought paperwork from [facility] that I completed. PPD ordered. He remains impulsive and disorganized, wandering, inappropriate with others, especially females. No aggression. Slept 5 hours. MSE: Marginally groomed, coop. and interactive. Knows who I am. Affect is bright, smiling. Mood is "good." TP is disorganized. TC reveals grandiose and erotomanic delusions. A&Ox2. Objective: Vital Signs Temp Pulse Resp BP Pulse Ox 37 C 92 16 140/88 H 97 09/20/18 08:00 09/20/18 08:00 09/20/18 08:00 09/20/18 08:00 09/20/18 08:00 Laboratory Results 09/05/18 05:45 09/14/18 06:00 - Time Spent With Patient Time Spent With Patient: 15" ICD10 Worksheet Patient Problems: Problems Problem Status Onset Psychosis Acute Frontotemporal dementia Chronic Hypertension Acute
[2018-09-20] MEDS: CHOLECALCIFEROL VIT D3 1,000 UNITS TAB PO SCH (21:42)
[2018-09-20] MEDS: traZODone 50 MG TAB PO SCH (21:42)
[2018-09-20] MEDS: ASPIRIN 81 MG CHEWABLE TAB PO SCH (21:42)
[2018-09-20] MEDS: DIVALPROEX ER 250 MG TAB PO SCH (21:42)
[2018-09-20] MEDS: BENZONATATE 100 MG CAP PO PRN (23:02)
--- NOTE | 2018-09-21 07:27 | SOAPPROG ---
SOAP Progress Note Assessment/Plan: Assessment: Frontotemporal dementia. No improvement noted (see subjective/objective note). Patient exhibits persistent inability to perform essential function due to current condition. Patient is unable to communicate his basic needs appropriately and unable to attend independently and appropriately to ADLs. Patients support system has inability to manage functional impairment at lower level of care. Patient could benefit from continued inpatient hospitalization for crisis stabilization, safety, and medication evaluation. Plan: 1. Psychotropic medications: After reviewing options, risks, and benefits, patient agrees to continue current medications. No medication changes as more time is needed to determine ongoing tolerability and efficacy. Plan is to continue to observe patient for response and side effects from medications, and ongoing monitoring and evaluation. 2. Review with patient informed consent and recommendations for psychotropic medication treatment listed below 3. Labs: VPA level prior to HS dose on Monday 4. Therapy: continue milieu and group therapy 5. Further investigation including gathering information from patients relatives and review of past case records to inform treatment plan. 6. Safety/Wellness plan and follow-up outpatient appointments to be established prior to discharge. Next steps are for patient to meet with career technical education teacher to plan a safe discharge plan and establish outpatient services for ongoing treatment. 7. Confer with inpatient treatment team regarding treatment plan. 8. Psychosocial stressors addressed through disability case manager. 9. Legal status: [facility] 10. Consider discharge this week if patient is in stable condition, safe, and has a safe discharge plan. PSYCHOTROPIC MEDICATION TREATMENT INFORMED CONSENT and RECOMMENDATIONS: Review nature of condition, diagnosis, and prognosis. Review nature and purpose of psychotropic medication treatment. Review type of psychotropic medications being ordered. Review risk and benefits of psychotropic medication treatment. Review probable length of time patient will need to take medications. Review risk and benefits of not undergoing psychotropic medication treatment. Review alternative treatments to psychotropic medications. Review psychotropic medications contraindications, drug-drug interactions, side effects, and importance of reporting any side effects to a psychiatric provider or nurse during inpatient hospitalization, and upon discharge to patients psychiatric outpatient provider, primary care provider, or other health progressive care manager. Review importance of asking a nurse, psychiatric provider, or primary care provider any questions or problems concerning the psychotropic medications. Verify patient understands the information that has been provided, and understands, accepts, and agrees to psychotropic medications. Review patients safety plan and importance of patient to report to staff while hospitalized if patient is ever a danger to self/others, or unable to care for self, and upon discharge, the importance for patient to contact [facility] or 1, or go to the nearest emergency room, if patient is ever a danger to self/others, or unable to care for self. Recommend that upon discharge patient establish medication management treatment with a psychiatric provider, establishes routine therapy appointments, and follow-up with primary care provider. Verify patient understands and agrees to these recommendations. 09/21/18 07:27 Subjective: Following up with patient for evaluation of mood and safety. Patient reports, "Good morning. Doing good." Patient reports no side effects from current medications, and agrees to continue. Objective: Vital Signs Temp Pulse Resp BP Pulse Ox 36.0 C 89 14 152/82 H 93 09/21/18 00:00 09/21/18 00:00 09/21/18 00:00 09/21/18 00:00 09/21/18 00:00 Laboratory Results 09/05/18 05:45 09/14/18 06:00 MSE: The patient is a well-nourished male looking stated chronological age. Attire is appropriate and dress is casual. Grooming status is appropriate. Ambulation is independent. Gait is normal and coordinated. Posture is normal and relaxed. Eye contact is appropriate. Motor activity is appropriate with purposeful, organized, coordinated movements; with no involuntary movements. Attitude is cooperative. Patient appears distracted and does not relate well to this interviewer. Language production is spontaneous. R/R/V normal. Articulation is clear. Patient reports mood as okay with congruent and appropriate affect, irritable and agitated. Patients thought process is disorganized, non-linear, illogical, and tangential. Patient denies suicidal thoughts, denies homicidal ideation. Patient denies auditory, visual hallucinations. Patient denies delusions. Patient does not appear to be attending to internal stimuli. Patients attention and concentration are poor. Patient is oriented to person, place. Patients insight and judgment are poor. - Time Spent With Patient Time Spent With Patient: 15 minutes, met with patient individually. - Pending Discharge Pending Discharge Within 24 Hours: No Pending Discharge Within 48 Hours: No ICD10 Worksheet Patient Problems: Problems Problem Status Onset Psychosis Acute Frontotemporal dementia Chronic Hypertension Acute
[2018-09-21] MEDS: MEMANTINE HCL 5 MG TAB PO SCH (08:48)
[2018-09-21] MEDS: amLODIPine BESYLATE 5 MG TAB PO SCH (08:48)
[2018-09-21] MEDS: METOPROLOL SUCCINATE XR 100 MG TAB PO SCH (08:48)
[2018-09-21] MEDS: OMEGA-3 FATTY ACIDS 1,000 MG CAP PO SCH ×2 (08:48→21:38)
[2018-09-21] MEDS: CHOLECALCIFEROL VIT D3 1,000 UNITS TAB PO SCH (21:38)
[2018-09-21] MEDS: ASPIRIN 81 MG CHEWABLE TAB PO SCH (21:38)
[2018-09-21] MEDS: traZODone 50 MG TAB PO SCH (21:38)
[2018-09-21] MEDS: DIVALPROEX ER 250 MG TAB PO SCH (21:38)
[2018-09-22] MEDS: LORazepam 0.5 MG TAB PO PRN (02:07)
[2018-09-22] MEDS: BENZONATATE 100 MG CAP PO PRN ×2 (02:07→22:10)
[2018-09-22] MEDS: OMEGA-3 FATTY ACIDS 1,000 MG CAP PO SCH ×2 (08:42→19:58)
[2018-09-22] MEDS: amLODIPine BESYLATE 5 MG TAB PO SCH (08:42)
[2018-09-22] MEDS: MEMANTINE HCL 5 MG TAB PO SCH (08:42)
[2018-09-22] MEDS: METOPROLOL SUCCINATE XR 100 MG TAB PO SCH (08:43)
[2018-09-22] MEDS: DIVALPROEX ER 250 MG TAB PO SCH (17:59)
--- NOTE | 2018-09-22 19:03 | SOAPPROG ---
SOAP Progress Note Assessment/Plan: Assessment: 78yo with dx frontotemporal dementia, overall improved with restart on depakote 09/22/18 15:03 slept 6hr. still somewhat disinhibited around and overly complimentary of women, but not behaviorally inappropriate and responds to limits. "I'd like to be off all meds" thinks has no problems for which he needs to take meds. reports good appetite, energy, sleep "okay unless I'm thinking too much or worrying". MSE: nml psychom activity. elderly CM. calm, coop, good e/c, nml speech rate/ vol. seems forgetful but pleasant. engaging. mood "fine", affect euthymic. denied ah/vh or any si/hi. i/j poor. PLAN: -Discussed need for meds and importance of compliance. Perhaps could d/w primary team any simplification of regimen. Pt mentions not liking to take so many [place] 3 pills. -cont VPA 1250mg hs, Namenda 10mg and other meds as before. Objective: Vital Signs Temp Pulse Resp BP Pulse Ox 36.6 C 84 16 139/76 H 94 09/22/18 08:00 09/22/18 08:00 09/22/18 08:00 09/22/18 08:00 09/22/18 08:00 Laboratory Results 09/05/18 05:45 09/14/18 06:00 - Time Spent With Patient Time Spent With Patient: 25min - Pending Discharge Pending Discharge Within 24 Hours: No ICD10 Worksheet Patient Problems: Problems Problem Status Onset Psychosis Acute Frontotemporal dementia Chronic Hypertension Acute
[2018-09-22] MEDS: CHOLECALCIFEROL VIT D3 1,000 UNITS TAB PO SCH (19:58)
[2018-09-22] MEDS: ASPIRIN 81 MG CHEWABLE TAB PO SCH (19:58)
[2018-09-22] MEDS: traZODone 50 MG TAB PO SCH (20:00)
[2018-09-22] MEDS: GUAIFENESIN/DM 10 ML UDCUP PO PRN (22:10)
[2018-09-23] MEDS: amLODIPine BESYLATE 5 MG TAB PO SCH (08:22)
[2018-09-23] MEDS: METOPROLOL SUCCINATE XR 100 MG TAB PO SCH (08:22)
[2018-09-23] MEDS: OMEGA-3 FATTY ACIDS 1,000 MG CAP PO SCH ×2 (08:22→20:49)
[2018-09-23] MEDS: MEMANTINE HCL 5 MG TAB PO SCH (08:22)
--- NOTE | 2018-09-23 13:51 | ASMTBHDC ---
Notes Note: Notes: Pt. reports "having a pretty good day for a rainy day". Pt. reports he slept "like a rock". Pt. reports "getting so much" to eat on his trays, and trying to attend every group. Pt. reports "don't know of any" side effects from his medications, adding he "wish I was off them" adding because he is "taking too much medication". Pt. asked about getting his [place] 3 in a different form or taking it at different times in the day. Pt. reports "feel good about myself", adding "don't like things I do sometimes". Pt. stated he can be "stupid" sometimes. Pt. reports "I like this place, but I want to leave". Pt. denied SI, HI, AVH and paranoia. Pt. presents as alert, calm, good eye contact, friendly, talkative, and cooperative. Staff report pt. sleeping 5 hours and being medication compliant. Staff read pt's TB results, pt. is negative. CC emailed complete TB form to [facility] today, and put all completed paperwork on pt's chart to go with pt. when he discharges. Pt. to discharge to [facility] tomorrow between 10am and 2pm. Date Signed: 09/23/2018 01:51 PM Electronically Signed By:Nikole Clayton
[2018-09-23] MEDS: OLANZapine DISINTEGR 5 MG TAB PO PRN (15:36)
[2018-09-23] MEDS: traZODone 50 MG TAB PO SCH (20:49)
[2018-09-23] MEDS: ASPIRIN 81 MG CHEWABLE TAB PO SCH (20:49)
[2018-09-23] MEDS: CHOLECALCIFEROL VIT D3 1,000 UNITS TAB PO SCH (20:49)
[2018-09-23] MEDS: DIVALPROEX ER 250 MG TAB PO SCH (20:49)
--- NOTE | 2018-09-23 23:34 | SOAPPROG ---
SOAP Progress Note Assessment/Plan: Assessment: 78yo with dx frontotemporal dementia, overall improved with restart on depakote 09/22/18 15:03 slept 6hr. still somewhat disinhibited around and overly complimentary of women, but not behaviorally inappropriate and responds to limits. "I'd like to be off all meds" thinks has no problems for which he needs to take meds. reports good appetite, energy, sleep "okay unless I'm thinking too much or worrying". MSE: nml psychom activity. elderly CM. calm, coop, good e/c, nml speech rate/ vol. seems forgetful but pleasant. engaging. mood "fine", affect euthymic. denied ah/vh or any si/hi. i/j poor. PLAN: -Discussed need for meds and importance of compliance. Perhaps could d/w primary team any simplification of regimen. Pt mentions not liking to take so many [place] 3 pills. -cont VPA 1250mg hs, Namenda 10mg and other meds as before. 09/24/18 17:11 slept 5hr present. was initially concerned about change in presentation until learned of prn med given states pt was a bit agitated earlier this afternoon, she thought maybe b/c thinks he's going to a NH and will never leave. d/c planned for tomorrow. staff gave Zyprexa 5mg for agitation. MSE: elderly CM, casually dressed. steady but slowed gait. some noted sluggishness in speech, with mild drooling. mood "fine, tired", affect mildly groggy but engaging. Oriented to August,, hospital and person. "I don't have my watch on". no evid of responding to int stim or any other psychosis. still complimenting women on unit. denied si/hi. i/j poor. CLOCK drawing- intact. PLAN: [facility] d/c prn zyprexa. pt noted with mild EPS and sedation presumably due to zyprexa prn dose. VPA 61. if any sustained AMS or concern for developing delirium, would recheck labs, also ammonia level since on VPA otherwise, d/c planned for tomorrow to SNF Objective: Vital Signs Temp Pulse Resp BP Pulse Ox 36.4 C 81 14 136/73 H 95 09/23/18 05:26 09/23/18 22:37 09/23/18 21:25 09/23/18 22:37 09/23/18 21:25 Laboratory Results 09/05/18 05:45 09/14/18 06:00 - Time Spent With Patient Time Spent With Patient: 25min ICD10 Worksheet Patient Problems: Problems Problem Status Onset Psychosis Acute Frontotemporal dementia Chronic Hypertension Acute
[2018-09-24 06:36] VITALS: BP 156/74
[2018-09-24] MEDS: amLODIPine BESYLATE 5 MG TAB PO SCH (09:11)
[2018-09-24] MEDS: MEMANTINE HCL 5 MG TAB PO SCH (09:11)
[2018-09-24] MEDS: METOPROLOL SUCCINATE XR 100 MG TAB PO SCH (09:11)
[2018-09-24] MEDS: OMEGA-3 FATTY ACIDS 1,000 MG CAP PO SCH (09:12)
--- NOTE | 2018-09-24 20:45 | BDS ---
[f rep st] BEHAVIORAL HEALTH DISCHARGE SUMMARY REASON FOR ADMISSION: From the ED note dated 08/30/2018, the patient presented to the emergency department with his family. The patient has had several "run- ins" with the police. According to report from son, had been sleeping only every other night, verbally abusive to his . 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 Family reported that the patient was diagnosed with dementia 3 years ago. Recently hospitalized with similar presentation and at that time was diagnosed with unspecified psychosis. The patient was admitted involuntarily and on an M1 hold due to being gravely disabled due to a mental illness. Patient was admitted for safety, crisis stabilization, and medication management. ADMITTING DIAGNOSES: 1. Unspecified psychosis. 2. Rule out frontotemporal dementia. ADMISSION PHYSICAL EXAM: Patient was seen on 08/30/2018 for history and physical consultation for medical clearance for inpatient psychiatric hospitalization and treatment. The patient was medically cleared for inpatient psychiatric hospitalization. For further details, please refer to [employer]eles[employer] consultant note dated 08/30/2018. ADMISSION LABS: 1. CBC within normal limits except red blood cells were low at 4.19, hemoglobin low at 13.2, hematocrit low at 38.8, platelet count low at 136, eosinophils low at 0.5, absolute eosinophils low at 0.02. 2. BMP within normal limits except BUN was elevated at 26. 3. Hemoglobin A1c within normal limits at 5.9. 4. Liver function within normal limits except AST was elevated at 73. 5. Lipid panel: LDL cholesterol calculated elevated at 111, non-HDL cholesterol elevated at 135, HDL cholesterol low at 35. The rest of the lipid panel within normal limits. 6. Vitamin B12 within normal limits at 718. 7. TSH within normal limits at 2.270. 8. Urines within normal limits. 9. Toxicology screen negative for all substances screened and negative for ethyl alcohol. Valproic acid level on 09/17/2018 was 41.9. At that time, the patient was taking Depakote ER 750 mg p.o. q.h.s. On 09/23/2018, the patient's valproic acid level was 62.1 at current dose of Depakote ER 1250 mg p.o. q.h.s. MAJOR PROCEDURES OR TESTS: None. HOSPITAL COURSE: The most prominent symptoms and behaviors while the patient was here were at time of admission and for several weeks after admission, patient was irritable, agitated, poor sleep, disorganized, nonlinear and illogical thinking, provided nonsensical answers to interview questions. The patient did improve, and at time of discharge, patient was sleeping, presented with less manic-like symptoms, and was appropriate on unit. Treatment modalities utilized were milieu and group therapy. Trazodone 25 mg p.o. q.h.s. was started to target insomnia symptoms, was tolerated with no report of side effects. Depakote ER was started at 750 mg p.o. q.h.s. and was titrated to 1250 mg p.o. q.h.s. to target mood symptoms, was tolerated with no report of side effects and with good response. Patient reports he has improved since admission, states to be in stable condition, feels safe to discharge, and he contracts for safety. Patients response to treatment was good. There were no adverse or unexpected results of treatment. The patient was safe throughout stay, active in treatment, engaged in groups, and was appropriate with staff. Patient met with treatment team prior to discharge to assess readiness to discharge and review discharge plan. The treatment team consensus is the patient in stable condition, has a safe discharge plan, and is ready to discharge today. CONDITION AT DISCHARGE: Patient is no longer in need of inpatient level of care. The patients level of risk at time of discharge is low. MSE: The patient is a well-nourished male looking stated chronological age. Attire is appropriate and dress is casual. Grooming status is appropriate. Ambulation is independent. Gait is normal and coordinated. Posture is normal and relaxed. Eye contact is appropriate. Motor activity is appropriate with purposeful, organized, coordinated movements; with no involuntary movements. Attitude is cooperative. Patient appears fairly attentive and relates well to this interviewer. Language production is spontaneous. R/R/V normal. Articulation is clear. Patient reports mood as okay with congruent and appropriate affect, irritable and agitated. Patients thought process is disorganized, non-linear, illogical, and tangential. Patient denies suicidal thoughts, denies homicidal ideation. Patient denies auditory, visual hallucinations. Patient denies delusions. Patient does not appear to be attending to internal stimuli. Patients attention and concentration are poor. Patient is oriented to person, place. Patients insight and judgment are poor. DISCHARGE DIAGNOSIS: Frontotemporal dementia. CURRENT MEDICATIONS: After reviewing options, risks, and benefits with the patient and the patient's , the patient will continue the following medications: 1. Depakote ER 1250 mg p.o. q.h.s. 2. Hydrochlorothiazide 25 mg p.o. daily. 3. [place]-3 fatty acids, fish oil, 6000 mg p.o. b.i.d. 4. Trazodone 25 mg p.o. q.h.s. 5. Valsartan 320 mg p.o. daily. 6. Norvasc 10 mg p.o. daily. 7. Aspirin 81 mg p.o. q.h.s. 8. Vitamin D3 at 1000 units p.o. q.h.s. 9. Namenda 10 mg p.o. daily. 10. Toprol XL 200 mg p.o. daily. The patient is provided with prescriptions for these medications for 30 days. The prescriptions are reviewed with the patient and the patient's at time of discharge to ensure accuracy and patient and patient's 's understanding. DISPOSITION: Patient left hospital independently and voluntarily with plans to be admitted to a intermediate facility. FOLLOWUP: clinical nursing coordinator reports the appropriate outpatient follow-up services have been established and outpatient appointments have been scheduled. The patient received written instructions with times and dates of outpatient follow-up appointments. The following follow-up recommendations were provided to the patient at discharge: Continue psychotropic medications as prescribed and attend appointments as scheduled. Report any side effects to a psychiatric outpatient provider, a primary care provider, or other health field care manager. Address any questions or problems concerning the psychotropic medications with a psychiatric outpatient provider, a primary care provider, or other health field care manager. Contact [facility] or [facility], or go to the nearest emergency room, if you are ever a danger to yourself/others, or unable to care for yourself. As soon as possible, establish a routine medication management treatment with a psychiatric provider, establish routine therapy appointments, and follow-up with a primary care provider. LEGAL COURSE: The patient was admitted on an M1 hold for involuntary psychiatric hospitalization. Patient was then placed on a short-term certification. The patient's short-term certification was terminated at time of discharge. ATTITUDE AT TIME OF DISCHARGE: The patients attitude was positive at time of discharge, and patient reports looking forward to discharging today. The patient reports he feels safe to discharge, is no longer a danger to himself or others, is in stable condition, and contracts for safety. LABS AND RADIOLOGY STUDIES: There were no pending labs or studies at time of discharge. ADVANCE DIRECTIVES: There were no advance directives on file, and patient was full code during this hospitalization. /[id number]/MODL MTDD
--- NOTE | 2018-09-24 22:40 | BDS ---
[f rep st] BEHAVIORAL HEALTH DISCHARGE SUMMARY REASON FOR ADMISSION: From the ED note dated 08/30/2018, the patient presented to the emergency depa rtment with his family. The family reported the patient with bizarre behavior prior to admission. T he patient has had several "run-ins" with police. According to patient's son, the patient has only b een sleeping every other night and verbally abusive to his , reached out to his old girlfriend, o ffered to buy her house, recently purchased an [place]. Patient complaining that he is unable to drive the vehicle due to not having his [employer] driver's license. Reportedly the patient diagnosed with dementia 3 years ago. Was recently hospitalized in June with similar presentation. The patient was admitt ed voluntarily on an M1 hold due to being gravely disabled. The patient was admitted for safety, cri sis stabilization, and medication management. ADMITTING DIAGNOSES: 1. Unspecified psychosis. 2. Frontotemporal dementia rule out. ADMISSION PHYSICAL EXAMINATION: Patient was seen on 08/30/2018 for history and physical consult for medical clearance for inpatient psychiatric hospitalization and treatment. The patient was medically cleared for inpatient psychiatric hospitalization and treatment. For further details, please refer to [facility] consultant note dated 08/30/2018. ADMISSION LABORATORIES: 1. within normal limits except red blood cells were low at 4.19, hemoglobin was low at 13 .2, hematocrit low at 38.8, platelet count 136, eosinophils low at 0.5, absolute eosinophils low at 0 .02. 2. BMP within normal limits except BUN was elevated at 26, glucose was elevated at 107. 3. Hemoglobin A1c within normal limits at 5.9. 4. Calcium was low at 8.4. 5. Liver function within normal limits except AST was elevated at 73. 6. Lipid panel within normal limits except LDL cholesterol calculated was elevated at 111, non-HDL c holesterol was elevated at 135, HDL cholesterol was low at 35. 7. Vitamin B12 within normal limits at718. 8. TSH within normal limits at 2.270. 9. Urines within normal limits. 10. Urine toxicology screen was negative for all substances screened. Ethyl alcohol level was 0. 11. Valproic acid level on 09/17/2018, at dose of Depakote ER 750 mg p.o. at bedtime, was 41.9. Dep akote ER was increased to 1250 mg p.o. at bedtime and valproic acid level on 09/23/2018, was __ at dose of 1250 mg p.o. at bedtime. MAJOR PROCEDURES OR TESTS: None. HOSPITAL COURSE: The most prominent symptoms and behaviors while the patient was here were irritabil ity, . The patient at time of admission had decreased need for sleep, hypersexual, hyper-t alkative. The patient was disorganized, provided nonsensical answers to interview questions. The salomon fletcher's thought process was also tangential. Treatment modalities utilized were milieu and group the rapy. The patient's outpatient medications were continued, tolerated with no report of side effects and good response. Trazodone 25 mg p.o. at bedtime was started to target insomnia and mood symptoms, tolerated with no report of side effects. Depakote ER 750 mg was started and titrated to 1250 mg p. o. at bedtime, target mood symptoms, tolerated with no report of side effects and with good response. CONDITION AT DISCHARGE: DISCHARGE DIAGNOSIS: Frontotemporal dementia. CURRENT MEDICATIONS: After reviewing options, risks, benefits with the patient, the patient agrees t o continue: 1. Depakote ER 1250 mg p.o. at bedtime. 2. Hydrochlorothiazide 25 mg p.o. daily. 3. [place]-3 fatty acid fish oil 6000 mg p.o. twice daily. 4. Trazodone 25 mg p.o. at bedtime. 5. Valsartan 320 mg p.o. daily. 6. Norvasc 10 mg p.o. daily. 7. Aspirin 81 mg p.o. at bedtime. 8. Vitamin D3 at 1000 units p.o. at bedtime. 9. Namenda 10 mg p.o. daily. 10. Toprol XL 200 mg p.o. daily. These prescriptions are reviewed with the patient and the patient's at time of discharge. DISPOSITION: The patient left hospital independently and voluntarily with his , plans to be admi tted to the alf facility. FOLLOWUP: LEGAL COURSE: The patient was admitted on an M1 hold for involuntary inpatient psychiatric [facility]. The patient was then placed on a short-term certification. Patient discharged today indepen dently and voluntarily. Short-term certification was terminated at time of discharge. ATTITUDE AT TIME OF DISCHARGE: LABS AND RADIOLOGY STUDIES: There were no pending labs or studies at time of discharge. ADVANCED DIRECTIVES: There were no advance directives on file. The patient was full code during thi s hospitalization. /[id number]/MODL
== END 2018-09-24 09:40 | DRG 57 ==
LOC: BBEH 23:57
PROVIDERS: ADMIT Psychiatry & Neurology Behavioral Neurology & Neuropsychiatry; ATTEND Psychiatry & Neurology Behavioral Neurology & Neuropsychiatry
DX: G31.09 Other frontotemporal neurocognitive disorder (principal); F02.80 Dementia in other diseases classified elsewhere, unspecified severity, without behavioral disturbance, psychotic disturbance, mood disturbance, and anxiety; I10 Essential (primary) hypertension; K21.9 Gastro-esophageal reflux disease without esophagitis; Z85.46 Personal history of malignant neoplasm of prostate; L57.0 Actinic keratosis
CPT/HCPCS: 80305; 82607-90; 92523-GN; G0008; G0009; G0480

== ENCOUNTER 2018-10-05 16:13 | Emergency (ER) | payer OTHER, BC | END 2018-10-05 18:27 | disposition home or self-care (01) ==